=== PATIENT | female | born 1975 | race Caucasian/White ===

== ENCOUNTER → 2016-11-22 | Outpatient (REF) | payer OTHER ==
[~2016-11-22] MED LIST: NORA-BE
[2016-11-22 21:00] LABS: ANION GAP 7 MEQ/L (8-16); BLOOD UREA NITROGEN 8 MG/DL (7-18); CALCIUM LEVEL 8.7 MG/DL (8.5-10.1); CARBON DIOXIDE LEVEL 28 MEQ/L (21-32); CHLORIDE LEVEL 108 MEQ/L (98-107); CREATININE FOR GFR 0.76 MG/DL (0.55-1.02); GLOMERULAR FILTRATION RATE > 60.0 (>60); GLUCOSE, FASTING 67 MG/DL (70-105); POTASSIUM SERUM 3.6 MEQ/L (3.5-5.1); SODIUM LEVEL 143 MEQ/L (136-145)
== END ==
LOC: M SFHCADAM 16:58
PROVIDERS: ATTEND Physician Assistant
DX: I10 Essential (primary) hypertension (principal)

== ENCOUNTER 2018-11-03 09:16 | Emergency (ER) | payer OTHER ==
[~2018-11-03] VITALS: Ht 172.7 cm; Wt 116.8 kg
[2018-11-03] MEDS ORDERED: BENI1TAB3 PO (09:23)
[2018-11-03] MEDS ORDERED: CLAR10CA3 PO (09:23)
--- NOTE | 2018-11-03 10:26 | REP ---
Portable chest, single AP view with the patient upright, 10:07 a.m.: There are no comparisons. The lung whitley are clear. The cardiac size is normal. The machelle, mediastinum, and skeletal structures are unremarkable. Impression: Negative portable chest. Electronically Signed by Kash Pelaez MD 11/03/2018 10:17 A
--- NOTE | 2018-11-03 10:41 | ECGEPIP ---
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
[2018-11-03 10:48] LABS: BASO % 0.3 % (0.0-1.0); EOS # 0.1 10^3/uL (0.0-0.50); HEMATOCRIT 40.7 % (36.0-47.0); LYMPH # 1.4 10^3/uL (1.5-4.5); LYMPH % 18.6 % (24.0-44.0); MEAN CORPUSCULAR HEMOGLOBIN 29.6 pg (27.0-33.0); MEAN CORPUSCULAR HGB CONC 34.4 g/dl (32.0-36.5); MONO # 0.3 10^3/uL (0.0-0.8); MONO % 4.6 % (0.0-5.0); NEUTROPHILS # 5.5 10^3/uL (1.8-7.7); PLATELET COUNT, AUTOMATED 172 10^3/uL (150-450); RED BLOOD COUNT 4.73 10^6/uL (4.00-5.40); WHITE BLOOD COUNT 7.4 10^3/uL (4.0-10.0)
[2018-11-03 11:29] LABS: BLOOD UREA NITROGEN 10 MG/DL (7-18); CARBON DIOXIDE LEVEL 26 MEQ/L (21-32); CHLORIDE LEVEL 110 MEQ/L (98-107); CK-MB VALUE MASS < 1.0 NG/ML (<3.6); CPK CREATINE PHOSPHOKINASE 76 U/L (26-192); CREATININE FOR GFR 0.73 MG/DL (0.55-1.30); GLOMERULAR FILTRATION RATE > 60.0 (>58); GLUCOSE, FASTING 139 MG/DL (70-100); MAGNESIUM LEVEL 2.2 MG/DL (1.8-2.4); MB/CK RELATIVE INDEX 1.32 (< OR =4); PHOSPHORUS LEVEL 1.7 MG/DL (2.5-4.9); POTASSIUM SERUM 3.9 MEQ/L (3.5-5.1); SODIUM LEVEL 139 MEQ/L (136-145); THYROID STIMULATING HORMONE 0.662 uIU/ML (0.358-3.740); TROPONIN I < 0.02 NG/ML (< 0.10)
[2018-11-03] MEDS ORDERED: NEUTRA-PHOS 1.5 GM PACKET PO ONE (12:15)
[2018-11-03 13:00] VITALS: BP 149/92
== END 2018-11-03 13:18 | disposition home or self-care (01) ==
LOC: M ED 09:16
DX: R00.2 Palpitations (principal); I10 Essential (primary) hypertension; Z79.899 Other long term (current) drug therapy; Z79.3 Long term (current) use of hormonal contraceptives

== ENCOUNTER → 2019-08-13 | Outpatient (REF) | payer OTHER ==
[~2019-08-13] MED LIST changes: +BENI1TAB3 PO; +CLAR10CA3 PO
[2019-08-13 13:43] LABS: ALBUMIN 3.2 GM/DL (3.2-5.2); ALT/SGPT 33 U/L (12-78); BILIRUBIN,TOTAL 0.8 MG/DL (0.2-1.0); BLOOD UREA NITROGEN 10 MG/DL (7-18); CARBON DIOXIDE LEVEL 25 MEQ/L (21-32); CHLORIDE LEVEL 108 MEQ/L (98-107); GLOMERULAR FILTRATION RATE > 60.0 (>58); GLUCOSE, FASTING 105 MG/DL (70-100); SODIUM LEVEL 142 MEQ/L (136-145)
[2019-08-13 13:56] LABS: MAU/CREAT RATIO 29.2 MCG/MG (0.0-30.0)
[2019-08-13 14:07] LABS: HEMOGLOBIN A1c 5.6 %
== END ==
LOC: M SFHCADAM 08:01
PROVIDERS: ATTEND Physician Assistant
DX: E83.39 Other disorders of phosphorus metabolism (principal); I10 Essential (primary) hypertension; Z13.1 Encounter for screening for diabetes mellitus; R73.09 Other abnormal glucose

== ENCOUNTER → 2020-08-03 | Outpatient (REF) | payer OTHER ==
[2020-08-03 17:11] LABS: HEMATOCRIT 41.9 % (36.0-47.0); HEMOGLOBIN 13.9 g/dl (12.0-15.5); MEAN CORPUSCULAR HGB CONC 33.2 g/dl (32.0-36.5); MEAN CORPUSCULAR VOLUME 87.5 fl (80.0-96.0); PLATELET COUNT, AUTOMATED 211 10^3/uL (150-450); RED BLOOD COUNT 4.79 10^6/uL (4.00-5.40)
[2020-08-03 17:35] LABS: ALBUMIN 3.5 GM/DL (3.2-5.2); ALT/SGPT 37 U/L (12-78); BLOOD UREA NITROGEN 11 MG/DL (7-18); CALCIUM LEVEL 9.1 MG/DL (8.5-10.1); CARBON DIOXIDE LEVEL 24 MEQ/L (21-32); CHLORIDE LEVEL 108 MEQ/L (98-107); CHOLESTEROL LEVEL 161 MG/DL (<200); CHOLESTEROL RISK RATIO 3.744 (<5); GLOMERULAR FILTRATION RATE > 60.0 (>58); GLUCOSE, FASTING 86 MG/DL (70-100); HDL CHOLESTEROL 43 MG/DL (>40); LDL CHOLESTEROL 76 MG/DL (<100); NON-HDL-C 118 MG/DL; POTASSIUM SERUM 3.9 MEQ/L (3.5-5.1); SODIUM LEVEL 140 MEQ/L (136-145); TOTAL PROTEIN 7.2 GM/DL (6.4-8.2); TRIGLYCERIDES LEVEL 210 MG/DL (<150)
[2020-08-03 17:40] LABS: MALB URINE SIEMENS 78.5 MG/L; MAU/CREAT RATIO 40.2 MCG/MG (0.0-30.0)
[2020-08-03 17:54] LABS: HEMOGLOBIN A1c 5.5 %
== END ==
LOC: M SFHCADAM 12:00
PROVIDERS: ATTEND Physician Assistant
DX: I10 Essential (primary) hypertension (principal); R73.09 Other abnormal glucose; Z13.220 Encounter for screening for lipoid disorders

== ENCOUNTER 2020-09-26 17:29 | Emergency (ER) | payer OTHER ==
[~2020-09-26] VITALS: Ht 172.7 cm; Wt 118.1 kg
[2020-09-26] MEDS ORDERED: MICR1TAB18 (18:09)
[2020-09-26] MEDS ORDERED: FAMO40TA3 (18:09)
[2020-09-27] MEDS ORDERED: METR1GEL7 PV (02:43)
[2020-09-27 03:06] VITALS: BP 180/92
[2020-09-27 03:22] LABS: GC DNA AMPLIFICATION NEGATIVE (NEGATIVE)
== END 2020-09-27 03:07 | disposition home or self-care (01) ==
LOC: M ED 17:29
DX: M54.2 Cervicalgia (principal); N93.9 Abnormal uterine and vaginal bleeding, unspecified; Z79.899 Other long term (current) drug therapy

== ENCOUNTER → 2020-10-06 | Outpatient (CLI) | payer OTHER ==
[~2020-10-06] MED LIST changes: +FAMO40TA3; +METR1GEL7 PV; +MICR1TAB18
--- NOTE | 2020-10-06 10:37 | REP ---
INDICATION: PELVIC PAIN. COMPARISON: 04/06/2019. TECHNIQUE: Transabdominal and transvaginal scanning performed. FINDINGS: Uterine dimensions are 9.7 x 4.7 x 5.8 cm. Endometrial echo is 4 mm in AP dimension and centrally placed. There is an anterior fibroid measuring 1.5 cm in diameter. The bladder measures 15.5 x 9.6 x 11.2cm. The right ovary has dimensions of 3.2 x 1.8 x 2.4 cm. It's Doppler flow is normal with a resistive index of 0.66. There has been a prior left oophorectomy. There is no adnexal mass identified. No free fluid is seen in the cul-de-sac. IMPRESSION: Anterior fibroid 1.5 cm in diameter. No adnexal mass, torsion or free fluid. <Electronically signed by Kash Sequeira > 10/06/20 1033
[2020-10-06 14:00] LABS: GC DNA AMPLIFICATION NEGATIVE (NEGATIVE)
== END ==
LOC: M RAD 09:16
PROVIDERS: ATTEND Physician Assistant
DX: R10.2 Pelvic and perineal pain (principal); D25.9 Leiomyoma of uterus, unspecified

== ENCOUNTER → 2020-11-03 | Outpatient (REF) | payer OTHER | LOC: M SFHCWAGY 13:19 | PROVIDERS: ATTEND Advanced Practice Midwife | DX: Z12.4 Encounter for screening for malignant neoplasm of cervix (principal); R87.610 Atypical squamous cells of undetermined significance on cytologic smear of cervix (ASC-US) | CPT/HCPCS: 87624; G0123 ==

== ENCOUNTER → 2020-11-09 | Outpatient (REF) | payer OTHER ==
[2020-11-09 13:22] LABS: BASO % 0.5 % (0.0-1.0); EOS # 0.1 10^3/uL (0.0-0.5); EOS % 1.4 % (0.0-3.0); HEMATOCRIT 42.1 % (36.0-47.0); HEMOGLOBIN 14.3 g/dl (12.0-15.5); LYMPH # 1.4 10^3/uL (1.5-5.0); LYMPH % 21.4 % (24.0-44.0); MEAN CORPUSCULAR HEMOGLOBIN 29.5 pg (27.0-33.0); MEAN CORPUSCULAR VOLUME 86.8 fl (80.0-96.0); MONO # 0.3 10^3/uL (0.0-0.8); NEUTROPHILS # 4.7 10^3/uL (1.5-8.5); NEUTROPHILS % 71.2 % (36.0-66.0); PLATELET COUNT, AUTOMATED 222 10^3/uL (150-450); RED BLOOD COUNT 4.85 10^6/uL (4.00-5.40); WHITE BLOOD COUNT 6.6 10^3/uL (4.0-10.0)
[2020-11-09 16:11] LABS: ALBUMIN 3.5 GM/DL (3.2-5.2); ALT/SGPT 50 U/L (12-78); AMYLASE 54 U/L (25-115); BLOOD UREA NITROGEN 8 MG/DL (7-18); CALCIUM LEVEL 9.7 MG/DL (8.5-10.1); CARBON DIOXIDE LEVEL 25 MEQ/L (21-32); CHLORIDE LEVEL 109 MEQ/L (98-107); CREATININE FOR GFR 0.82 MG/DL (0.55-1.30); GLOMERULAR FILTRATION RATE > 60.0 (>58); GLUCOSE, FASTING 134 MG/DL (70-100); LIPASE 97 U/L (73-393); POTASSIUM SERUM 3.9 MEQ/L (3.5-5.1); SODIUM LEVEL 140 MEQ/L (136-145); TOTAL PROTEIN 7.3 GM/DL (6.4-8.2)
== END ==
LOC: M SFHCADAM 10:42
PROVIDERS: ATTEND Physician Assistant
DX: I10 Essential (primary) hypertension (principal); R10.13 Epigastric pain

== ENCOUNTER 2020-11-13 13:06 | Emergency (ER) | payer OTHER ==
[~2020-11-13] VITALS: Ht 172.7 cm; Wt 112.3 kg
[2020-11-13 16:02] LABS: HEMATOCRIT 42.6 % (36.0-47.0); HEMOGLOBIN 14.7 g/dl (12.0-15.5); MEAN CORPUSCULAR HEMOGLOBIN 29.7 pg (27.0-33.0); MEAN CORPUSCULAR HGB CONC 34.5 g/dl (32.0-36.5); MEAN CORPUSCULAR VOLUME 86.1 fl (80.0-96.0); PLATELET COUNT, AUTOMATED 231 10^3/uL (150-450); RED BLOOD COUNT 4.95 10^6/uL (4.00-5.40); WHITE BLOOD COUNT 7.7 10^3/uL (4.0-10.0)
--- NOTE | 2020-11-13 16:04 | REP ---
INDICATION: Epigastric tenderness and chest pressure. COMPARISON: None. TECHNIQUE: CT chest performed without the use of intravenous contrast. Sagittal and coronal reconstruction images are performed. FINDINGS: Lungs: Clear, no infiltrate or nodule. Mediastinum: No gross adenopathy. Yanet: No gross adenopathy. Axilla: No gross adenopathy. Pleura: No effusion. Heart: Not enlarged. Thoracic aorta: No aneurysm. Visualized osseous structures: Unremarkable. IMPRESSION: Unremarkable noncontrast CT chest. <Electronically signed by Kash Sequeira > 11/13/20 1600
--- NOTE | 2020-11-13 16:10 | REP ---
INDICATION: Epigastric tenderness and chest pressure COMPARISON: 08/30/2011. TECHNIQUE: CT Scan of the abdomen and pelvis was performed without intravenous contrast. Sagittal and coronal reconstruction images performed. FINDINGS: Lung bases: Unremarkable. Liver: Grossly unremarkable. Gallbladder: Prior cholecystectomy. Spleen: Grossly unremarkable. Adrenals: Normal. Pancreas: Grossly unremarkable.. Kidneys: No hydronephrosis or nephrolithiasis. Ureters demonstrate no dilatation or calculus. Small and large bowel: Grossly unremarkable. Free fluid: None. Abdominal aorta: No aneurysm. Adenopathy: None. Appendix: Not inflamed. Osseous structures: There is spondylolysis of L5 with mild anterior grade 1 spondylolisthesis of L5 on S1, with associated moderate degenerative disc changes at that level.. Pelvis: No mass. No bladder calculus seen. IMPRESSION: Status post cholecystectomy. No acute pathology identified in the abdomen or pelvis. Spondylolysis L5 with mild anterior grade 1 spondylolisthesis of L5 on S1 and associated moderate degenerative disc changes. Otherwise, negative non-contrast CT abdomen and pelvis. <Electronically signed by Kash Sequeira > 11/13/20 4165
[2020-11-13 16:36] LABS: BLOOD UREA NITROGEN 8 MG/DL (7-18); CALCIUM LEVEL 9.1 MG/DL (8.5-10.1); CARBON DIOXIDE LEVEL 25 MEQ/L (21-32); CHLORIDE LEVEL 109 MEQ/L (98-107); CK-MB VALUE MASS < 1.0 NG/ML (<3.6); CPK CREATINE PHOSPHOKINASE 45 U/L (26-192); CREATININE FOR GFR 0.77 MG/DL (0.55-1.30); GLOMERULAR FILTRATION RATE > 60.0 (>58); GLUCOSE, FASTING 101 MG/DL (70-100); MB/CK RELATIVE INDEX 2.22 (< OR =4); POTASSIUM SERUM 3.9 MEQ/L (3.5-5.1); SODIUM LEVEL 140 MEQ/L (136-145); TROPONIN I < 0.02 NG/ML (< 0.10)
[2020-11-13 17:16] VITALS: BP 194/91
[2020-11-13 17:21] LABS: ALBUMIN 3.5 GM/DL (3.2-5.2); ALT/SGPT 45 U/L (12-78); BILIRUBIN,DIRECT 0.2 MG/DL (0.0-0.2); BILIRUBIN,TOTAL 0.9 MG/DL (0.2-1.0); LIPASE 109 U/L (73-393); TOTAL PROTEIN 7.4 GM/DL (6.4-8.2)
[2020-11-13] MEDS ORDERED: AMLO25TA PO (19:18)
[2020-11-13 19:40] VITALS: BP 160/88
--- NOTE | 2020-11-14 15:46 | ECGEPIP ---
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
== END 2020-11-13 19:41 | disposition home or self-care (01) ==
LOC: M ED 13:06 → EDBD 13:06 → M ED 19:41
DX: K43.9 Ventral hernia without obstruction or gangrene (principal); I10 Essential (primary) hypertension; K27.9 Peptic ulcer, site unspecified, unspecified as acute or chronic, without hemorrhage or perforation; M51.37 Other intervertebral disc degeneration, lumbosacral region; M43.17 Spondylolisthesis, lumbosacral region; Z79.3 Long term (current) use of hormonal contraceptives; Z79.899 Other long term (current) drug therapy

== ENCOUNTER → 2020-11-14 | Outpatient (REF) | payer OTHER ==
[~2020-11-14] MED LIST changes: +AMLO25TA PO
== END ==
LOC: M SFHCADAM 11:22
PROVIDERS: ATTEND Physician Assistant
DX: R10.13 Epigastric pain (principal)

== ENCOUNTER 2020-11-27 14:52 | Emergency (ER) | payer OTHER ==
[2020-11-27 15:53] LABS: BASO % 0.6 % (0.0-1.0); EOS # 0.1 10^3/uL (0.0-0.5); HEMATOCRIT 42.3 % (36.0-47.0); HEMOGLOBIN 14.7 g/dl (12.0-15.5); LYMPH # 1.4 10^3/uL (1.5-5.0); LYMPH % 18.9 % (24.0-44.0); MEAN CORPUSCULAR HEMOGLOBIN 29.9 pg (27.0-33.0); MEAN CORPUSCULAR HGB CONC 34.8 g/dl (32.0-36.5); MONO # 0.4 10^3/uL (0.0-0.8); MONO % 5.9 % (2.0-8.0); NEUTROPHILS # 5.2 10^3/uL (1.5-8.5); NEUTROPHILS % 73.3 % (36.0-66.0); PLATELET COUNT, AUTOMATED 219 10^3/uL (150-450); RED BLOOD COUNT 4.92 10^6/uL (4.00-5.40); WHITE BLOOD COUNT 7.1 10^3/uL (4.0-10.0)
[2020-11-27] MEDS ORDERED: LARI1TAB9 PO (15:55)
[2020-11-27] MEDS ORDERED: OLME20TA2 PO (15:55)
[2020-11-27] MEDS ORDERED: BUSP15TA47 PO (15:55)
[2020-11-27] MEDS ORDERED: OMEP-221 PO (15:55)
[2020-11-27 15:57] LABS: APPEARANCE, URINE CLEAR (CLEAR); BACTERIA, URINE AUTO NEGATIVE (NEGATIVE); BILIRUBIN, URINE AUTO NEGATIVE (NEGATIVE); BLOOD, URINE BLOOD 2+ (NEGATIVE); COLOR, URINE YELLOW (YELLOW); GLUCOSE, URINE (UA) AUTO NEGATIVE (NEGATIVE); KETONE, URINE AUTO NEGATIVE (NEGATIVE); LEUKOCYTE ESTERASE, URINE AUTO NEGATIVE (NEGATIVE); MUCUS, URINE SMALL (NEGATIVE); NITRITE, URINE AUTO NEGATIVE (NEGATIVE); PROTEIN, URINE AUTO NEGATIVE (NEGATIVE); RBC, URINE AUTO 1 /HPF (0-3); SPECIFIC GRAVITY URINE AUTO 1.006 (1.002-1.035); SQUAMOUS EPITHELIAL CELL UR AU 0 /HPF (0-6); UROBILINOGEN, URINE AUTO 0.2 mg/dL (0.0-2.0); WBC, URINE AUTO 2 /HPF (0-3)
--- NOTE | 2020-11-27 15:58 | REP ---
INDICATION: CHEST PAIN COMPARISON: Radiograph 11/03/2018, CT 11/13/2020. TECHNIQUE: PA/Lateral FINDINGS: Lungs: Clear, no infiltrate. Heart: Normal in size. Mediastinum: Mediastinal silhouette unremarkable. Pleural angles: Unremarkable.. Bones and soft tissues: Unremarkable. IMPRESSION: No acute pulmonary disease. <Electronically signed by Kash Sequeira > 11/27/20 0240
[2020-11-27 16:27] LABS: RSV AMPLIFICATION NEGATIVE (NEGATIVE)
[2020-11-27 16:46] LABS: ALBUMIN 3.7 GM/DL (3.2-5.2); ALT/SGPT 68 U/L (12-78); BILIRUBIN,DIRECT 0.2 MG/DL (0.0-0.2); BLOOD UREA NITROGEN 8 MG/DL (7-18); CALCIUM LEVEL 9.7 MG/DL (8.5-10.1); CARBON DIOXIDE LEVEL 27 MEQ/L (21-32); CHLORIDE LEVEL 109 MEQ/L (98-107); CK-MB VALUE MASS < 1.0 NG/ML (<3.6); CPK CREATINE PHOSPHOKINASE 63 U/L (26-192); CREATININE FOR GFR 0.81 MG/DL (0.55-1.30); FREE T4 1.29 NG/DL (0.76-1.46); GLOMERULAR FILTRATION RATE > 60.0 (>58); GLUCOSE, FASTING 116 MG/DL (70-100); MB/CK RELATIVE INDEX 1.59 (< OR =4); POTASSIUM SERUM 3.5 MEQ/L (3.5-5.1); SODIUM LEVEL 141 MEQ/L (136-145); THYROID STIMULATING HORMONE 0.235 uIU/ML (0.358-3.740); TOTAL PROTEIN 7.7 GM/DL (6.4-8.2); TROPONIN I < 0.02 NG/ML (< 0.10)
[2020-11-27] MEDS ORDERED: ISOVUE-370 76% 100ML VIAL As Ordered ONE (16:56)
[2020-11-27] MEDS ORDERED: ACETAMINOPHEN TAB 650MG DOSE (2X325MG) PO ONE (17:20)
[2020-11-27 17:28] LABS: HEPATITIS B SURFACE ANTIGEN NEGATIVE (NEGATIVE); HEPATITIS C VIRUS ABY INDEX < 0.0 INDEX (<0.8)
[2020-11-27 17:48] LABS: HIV SCREEN CENTAUR SOURCE NEGATIVE (NEGATIVE)
--- NOTE | 2020-11-27 17:58 | REPVR ---
PROCEDURE INFORMATION: Exam: CTA Chest With Contrast Exam date and time: 11/27/2020 5:02 PM Age: 45 years old Clinical indication: Other: Abdominal pain, 20 pound weight loss TECHNIQUE: Imaging protocol: Computed tomographic angiography of the chest with contrast. 3D rendering (Not supervised by radiologist): MIP and/or 3D reconstructed images were created by the technologist. Radiation optimization: All CT scans at this facility use at least one of these dose optimization techniques: automated exposure control; mA and/or kV adjustment per patient size (includes targeted exams where dose is matched to clinical indication); or iterative reconstruction. Contrast material: ISOVUE 370; Contrast volume: 100 ml; Contrast route: INTRAVENOUS (IV); COMPARISON: CT Chest without contrast 11/13/2020 3:26 PM FINDINGS: Pulmonary arteries: There are no pulmonary emboli. Aorta: There is fusiform dilatation of the supravalvular ascending thoracic aorta which measures 3.8 cm. maximally. There is no dissection or saccular component. Thyroid: Multiple small hypoattenuating thyroid nodules measure up to 9 mm in the left lobe. Correlation with nonemergent thyroid ultrasound suggested. Lungs: Mild bibasilar atelectasis. Pleural spaces: Unremarkable. No pneumothorax. No pleural effusion. Heart: Unremarkable. No cardiomegaly. No pericardial effusion. Lymph nodes: Unremarkable. No enlarged lymph nodes. Liver: There is a diffuse decrease in hepatic parenchymal density, consistent with steatosis. Gallbladder and bile ducts: Cholecystectomy. Spleen: There is mild splenomegaly. Bones/joints: The spine demonstrates mild degenerative changes. Soft tissues: Unremarkable. IMPRESSION: 1. Multiple small hypoattenuating thyroid nodules measure up to 9 mm in the left lobe. Correlation with nonemergent thyroid ultrasound could be considered although in the absence of suspicious findings no follow-up is required using ACR guidelines. 2. There is fusiform dilatation of the supravalvular ascending thoracic aorta which measures 3.8 cm. maximally. There is no dissection or saccular component. 3. There are no pulmonary emboli. 4. There are no acute pulmonary parenchymal abnormalities. COMMENTS: Consistent with the [employer]'s Incidental Findings Committee white paper (J Am Joel Radiol 2015): In patients aged 35 years and older with an incidental thyroid nodule equal to or greater than 1.[address], MRI or extrathyroidal US, further evaluation with dedicated thyroid US is recommended for patients with normal life expectancy and without comorbidities. For smaller nodules without suspicious features, no further evaluation or follow up is recommended. Electronically signed by: Sander Sharp On 11/27/2020 17:57:57 PM
--- NOTE | 2020-11-27 18:12 | REPVR ---
PROCEDURE INFORMATION: Exam: CT Abdomen And Pelvis With Contrast Exam date and time: 11/27/2020 5:02 PM Age: 45 years old Clinical indication: Other: Abdominal pain, 20 pound weight loss TECHNIQUE: Imaging protocol: Computed tomography of the abdomen and pelvis with contrast. Radiation optimization: All CT scans at this facility use at least one of these dose optimization techniques: automated exposure control; mA and/or kV adjustment per patient size (includes targeted exams where dose is matched to clinical indication); or iterative reconstruction. Contrast material: ISOVUE 370; Contrast volume: 100 ml; Contrast route: INTRAVENOUS (IV); COMPARISON: CT ABD PELVIS W/O CONTRAST 11/13/2020 3:26 PM FINDINGS: Liver: Normal. No mass. Gallbladder and bile ducts: There has been a cholecystectomy. Pancreas: Normal. No ductal dilation. Spleen: There is mild splenomegaly with a maximum span of 13.6 centimeters. No focal abnormalities demonstrated. Adrenal glands: Normal. No mass. Kidneys and ureters: Normal. No hydronephrosis. Stomach and bowel: Unremarkable. No obstruction. No mucosal thickening. Appendix: No evidence of appendicitis. Intraperitoneal space: Unremarkable. No free air. No significant fluid collection. Vasculature: The aortoiliac vessels demonstrate mild atherosclerotic calcification. Lymph nodes: Unremarkable. No enlarged lymph nodes. Urinary bladder: Unremarkable as visualized. Reproductive: Unremarkable as visualized. Bones/joints: There is a grade 1 anterior spondylolisthesis of L5 on S1 secondary to bilateral L5 spondylolysis. Mild central spinal stenosis L3-L4 and severe central spinal stenosis L4-L5. Soft tissues: There is a small umbilical hernia. There is no evidence of incarceration. Spigelian hernia right lower quadrant without evidence of incarceration. Diastasis of the rectus sheath. IMPRESSION: 1. There is a grade 1 anterior spondylolisthesis of L5 on S1 secondary to bilateral L5 spondylolysis. 2. There has been a cholecystectomy. 3. There is mild splenomegaly with a maximum span of 13.6 centimeters. No focal abnormalities demonstrated. 4. Spigelian hernia right lower quadrant without evidence of incarceration. 5. No acute findings. Electronically signed by: Sander Sharp On 11/27/2020 18:12:01 PM
[2020-11-27] MEDS ORDERED: VALSARTAN 80 MG TAB (DIOVAN) PO ONE (18:15)
[2020-11-27] MEDS ORDERED: AMLO1TAB25 PO (18:44)
[2020-11-27] MEDS ORDERED: VALS1TAB68 PO (18:45)
[2020-11-27 19:14] VITALS: BP 159/80
[2020-11-27 19:27] VITALS: BP 165/88
--- NOTE | 2020-11-27 19:50 | ECGEPIP ---
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
--- NOTE | 2020-11-29 13:07 | ED PDOC ---
Post-Departure Follow-Up ranjana avelar faxed formal reports of ct chest and abd/p for fu Bridger Navarrete MD Nov 29, 2020 13:07
== END 2020-11-27 19:47 | disposition home or self-care (01) ==
LOC: M ED 14:52
DX: I10 Essential (primary) hypertension (principal); R63.4 Abnormal weight loss; E04.1 Nontoxic single thyroid nodule; M43.17 Spondylolisthesis, lumbosacral region; M48.061 Spinal stenosis, lumbar region without neurogenic claudication; R16.1 Splenomegaly, not elsewhere classified; K43.9 Ventral hernia without obstruction or gangrene; Z79.899 Other long term (current) drug therapy
CPT/HCPCS: 36415; 71046; 71275; 74177; 80047; 80048; 80076; 81001; 82550; 82553; 84439; 84443; 84484; 84702; 85025; 86803; 87340; 87389; 87631; 93005; 93041; 94760; 99285; Q9967

== ENCOUNTER → 2020-12-01 | Outpatient (REF) | payer OTHER ==
[~2020-12-01] MED LIST changes: +AMLO1TAB25 PO; +BUSP15TA47 PO; +LARI1TAB9 PO; +OLME20TA2 PO; +OMEP-221 PO; +VALS1TAB68 PO
[2020-12-01 14:20] LABS: FREE T3 2.9 PG/ML (2.2-4.0); FREE T4 1.2 NG/DL (0.76-1.46); THYROID STIMULATING HORMONE 0.466 uIU/ML (0.358-3.740)
[2020-12-01 14:21] LABS: TOTAL T3 162.8 NG/DL (60.0-181.0)
== END ==
LOC: M SFHCADAM 10:17
PROVIDERS: ATTEND Physician Assistant
DX: R79.89 Other specified abnormal findings of blood chemistry (principal); E04.1 Nontoxic single thyroid nodule

== ENCOUNTER → 2020-12-11 | Outpatient (CLI) | payer OTHER ==
--- NOTE | 2020-12-13 09:33 | REP ---
INDICATION: NODULE COMPARISON: None. TECHNIQUE: Sequeira scale and color evaluation of the thyroid gland using the linear high frequency transducer. FINDINGS: Right thyroid lobe measures 6.7 x 2.0 x 2.3 cm and includes multiple small nodules/cysts including 6 x 3 x 5 mm cyst and 4 x 3 x 3 mm hypoechoic nodule as well as 1.6 x 1.0 x 1.7 cm lower pole isoechoic nodule. Isthmus measures 6.4 mm in width. Left thyroid lobe measures 6.4 x 2.4 x 2.1 cm and includes 4 x 3 x 3 mm midpole cyst, few small vague nodules measuring up to 5 x 3 x 4 mm, and complex lower pole nodule with cystic component and coarse calcifications measuring 1.7 x 1.7 x 1.6 cm. IMPRESSION: Scattered cysts and nodules most likely represent a benign process. However, left lower pole complex lesion conforms to TI-RADS 4 and may warrant FNA. <Electronically signed by Ruben Weeks > 12/13/20 0983
== END ==
LOC: M RAD 13:56
PROVIDERS: ATTEND Physician Assistant
DX: E04.2 Nontoxic multinodular goiter (principal)

== ENCOUNTER → 2020-12-19 | Outpatient (REF) | payer OTHER | LOC: M SFHCADAM 08:01 | PROVIDERS: ATTEND Physician Assistant | DX: I10 Essential (primary) hypertension (principal) ==

== ENCOUNTER → 2021-01-10 | Outpatient (REF) | payer OTHER ==
[~2021-01-10] MED LIST changes: +CHLO125TA PO; +CITA10TA5 PO; +DEBL1TAB PO; +FAMO20TA PO; +FAMO40TA3 PO; +OMEP-218 PO; +SUCR1TAB56 PO
== END ==
LOC: M LAB REF 18:27
PROVIDERS: ATTEND Internal Medicine Endocrinology, Diabetes & Metabolism
DX: E04.2 Nontoxic multinodular goiter (principal)

== ENCOUNTER → 2021-01-10 | Outpatient (CLI) | payer OTHER | LOC: M LABSMTC 11:32 | PROVIDERS: ATTEND Anesthesiology | DX: Z01.812 Encounter for preprocedural laboratory examination (principal); Z20.822 Contact with and (suspected) exposure to COVID-19 ==

== ENCOUNTER 2021-01-15 11:32 | Day surgery (SDC) | payer OTHER ==
[~2021-01-15] VITALS: Ht 170.2 cm; Wt 99.8 kg
[~2021-01-15 11:32] MED LIST changes: +NS 1,000 ML IV ONE
--- OUTSIDE RECORDS SUMMARY | 2021-01-15 11:37 | CCD | Continuity of Care Document ---
Author Author Jennifer NUNEZ MD Organization Unknown Address [address] [place] [address] Phone [phone] Care Team Providers Care [employer] Communications Sergeant Name Role Phone Ajayhemal Laura Elder AUTM Problems Active Problems Provider Date Essential hypertension Onset: 01/05/2021 Social History Type Date Description Comments Sex Unknown Tobacco Use Start: Unknown Never Smoked Cigarettes Smoking Status Reviewed: 01/10/21 Never Smoked Cigarettes ETOH Use Never used alcohol Allergies and adverse reactions Description No Known Drug Allergies Medications Active Medications SIG Qnty Indications Ordering Provide r Date Omeprazole 20mg Capsules DR 1 by mouth twice daily Unknown Famotidine 20mg Tablets 1 by mouth twice daily Unknown Valsartan 320mg Tablets 1 by mouth daily Unknown Deblitane 0.35mg Tablets 1 by mouth daily Unknown Chlorthalidone 25mg Tablets 1 by mouth daily Unknown Multivitamin Adult Chewtabs 2 by mouth daily Unknown Bio Cleanse 4 by mouth daily Unknown 000 Priobio 5 1 by mouth twice daily Unknown Mo Zme Forte 6 by mouth daily Unknown 7 Keto Zyme 4 by mouth daily Unknown 0 000 Vitamin B Complex Tablets 2 by mouth daily Unknown Blackcurrent Seed Oil 2 by mouth daily Unknown Claritin 10mg Capsules 1 by mouth every night at bedtime Unknown Vitamin D 50mcg (2000 Ut) Capsules 1 by mouth every day Unknown Immunizations Description No Information Available Vital Signs Date Vital Result Comment 01/10/2021 2:38pm BP Systolic 128 mmHg BP Diastolic 82 mmHg Heart Rate 96 /min Weight 224.38 lb O2 % BldC Oximetry 98 % 01/09/2021 10:03am BP Systolic 124 mmHg BP Diastolic 80 mmHg Heart Rate 84 /min Height 67.0 inches 5'7" Weight 225.00 lb BMI (Body Mass Index) 35.2 kg/m2 O2 % BldC Oximetry 98 % Results Test Acquired Date Facility Test Result H/L Range Note Laboratory test finding 01/10/2021 [facility] [address] [place] [address] (315)- - Non Machine Filler/Cytology Req For Servi (SEE NOTE) 1 Laboratory test finding 01/10/2021 [facility] [address] [place] [address] (315)- - Non Machine Filler/Cytology Req For Servi (SEE NOTE) 2 1 SPECIMEN: FNA Lef t thyroid Specimen received in Cytolyt (pink) SPECIMEN ADEQUACY: Satisfactory for evaluation CATEGORIZATION: Benign cellular changes: DESCRIPTIONS: Scattered groups of follicular cells exhibiting hurthle cell changes in a background of rare scattered neitrophils, lymphocytes, and macrophages. COMMENTS: 01/11/2021944 Signed COLE KIDD(ASCP) 01/11/202145 (Prelim) Signed ABDON MAE MD 01/11/2021 1013 2 SPECIMEN: FNA Rig ht thyroid Specimen received in Cytolyt SPECIMEN ADEQUACY: Satisfactory for evaluation CATEGORIZATION: Benign DESCRIPTIONS: Scattered small groups of follicular cells noted in a background of few scattered lymphocytes and blood elements. COMMENTS: 01/11/2021948 Signed COLE KIDD(ASCP) 01/11/2021 0949 (Prelim) Signed ABDON MAE MD 01/11/2021 1013 Procedures Date Code Description Status 01/10/2021 14479 Fine Needle Aspiration Biopsy In lcd Ultrasound Guidance Completed 01/09/2021 16468 Office/Outpatient New High MDM 6 0-74 Minutes Completed Medical Devices Description No Information Available Encounters Description No Information Available Assessments Date Code Description Provider 01/10/2021 E04.2 Nontoxic multinodular goiter Ventura Nunez MD 01/09/2021 E04.2 Nontoxic multinodular goiter Marcell Green NP Plan of Treatment Future Appointment(s):* 01/19/2021 4:15 pm - Jemima Green NP at DR. Nitza Nunez 01/09/2021 - Jemima Green NP* E04.2 Nontoxic multinodular goiter* Comments:* Pt referred for evaluation of MNG- pt's mother in [facility] has been to ER at [facility] multiple times due to Hypertension and chest pain. Had CT Chest which noted thyroid nodules. NO FH, small goiter on exam. 12/01/2020- TSH: 0.466 Free T4: 1.20 TT3: 162.8, FT3= 2.9U/S personally reviewed on website- [employer]- homogeneous echotexture. No blood flow identified. right superior nodule- 0.466 x 0.5 x 0.2 cm. midpole- 0.323 x 0.4 x 0.3 cm, inferior- 1.70 x 1.57 x 1.03 cm. Left mid- 0.4 x 0.2, second- 0.4 x 0.3 cm. lower pole- 1.56 x 1.7 x 1.6 cm. Ultrasound reveals a dominant nodule on the left and right - which warrants biopsy. The patient has agreed to return for in office U/S guided biopsy to rule out carcinoma. Procedure explained- pt is very upset and anxiousReviewed all possible situationsPt verbalized understandingRTO tomorrow for FNA. . * Follow up:* CBF Biopsy at f/u Functional Status Description No Information Available Mental Status Description No Information Available Referrals Description No Information Available
--- OUTSIDE RECORDS SUMMARY | 2021-01-15 11:37 | CCD ---
Author Author [facility] Organization [facility] Address Unknown Phone Unavailable Care Team Providers Care Promotions Executive Producer Name Role Phone Laura Pablo Unavailable PROBLEMS Type Condition ICD9-CM Code QYZ22-GS Code Onset Dates Condition S tatus W/U Status Risk SNOMED Code Notes Problem HTN (hypertension) I10 Active confirmed 3 6121258 Problem Hypophosphatemia E83.39 Active confirmed 499 6001 Problem Gastroesophageal reflux disease without esophagitis K21.9 Active confirmed 533978988 Problem Thyroid nodule E04.1 Active confirmed 40214 5005 Problem Primary hypertension I10 Active confirmed 11655884 Problem Hypertriglyceridemia E78.1 Active confirmed 929753395 Problem Anxiety F41.9 Active confirmed 37888656 Problem Primary insomnia F51.01 Active confirmed 397 2004 Problem PUD (peptic ulcer disease) K27.9 Active confirmed 51707143 ALLERGIES No Known Allergies ENCOUNTERS from 1975 to 2020-12-01 Encounter Location Date Provider Diagnosis [address] [place] [address] Nov, 2020 Laura Pablo Low TSH level R79.89 and Thyroid nodule E04.1 IMMUNIZATIONS Vaccine Route Administration Date Status COVID-19 dose #2 given elsewhere Unspecified Unknown May 09, 2020 Administered COVID-19 dose #1 given elsewhere Unspecified Unknown Aug Administered SOCIAL HISTORY Tobacco Use: Social History Observation Description Date Details (start date - stop date) Never Smoker Sex Assigned At : Social History Observation Description Sex Assigned At Unknown Audit Question Answer Notes Total Score: 0 Interpretation: Alcohol Education Language: Question Answer Notes Languages spoken: Wolof Domestic Violence: Question Answer Notes Status: Drug and Alcohol Question Answer Notes Total Score: 0 Interpretation: No problems reported BMI Care Goal Follow-Up Question Answer Notes Above Normal BMI Follow-Up Dietary management educatio n, guidance, and counseling Tobacco Use: Question Answer Notes Are you a: never smoker never smoker REASON FOR REFERRAL No Information VITAL SIGNS No information MEDICATIONS Medication SIG (Take, Route, Frequency, Duration) Notes Start Da te End Date Status Benicar 20 mg 1 tab(s) Orally Once a day for 90 day(s) Dec, Active Microgestin 24 Fe 1-20 MG-MCG 1 tablet Orally Once a day for 84 days Oct, Active amLODIPine Besylate 2.5 MG 1 tablet Orally Once a day Active Multivitamin Adult - as directed Orally Active Vitamin D 1000 UNIT 2 tablet Orally Once a day Active Valsartan 320 MG 1 tablet Orally Once a day at bedtime Active Microgestin 1/20 1-20 MG-MCG 1 tablet Orally Daily for Three Weeks, 1 Week off Unknown busPIRone HCl 15 MG 1 tablet orally twice a day for 30 days Active Probiotic - as directed Orally Activ e Omeprazole 20 MG 1 cap Orally twice a day for 90 day(s) Oct, Active Ambien 5 MG 1 tablet at bedtime Orally O nce a day at bedtime as needed MDD = 1 for 30 days Oct, Unknown Loratadine 10 MG 1 tablet Orally Once a day Active Famotidine 40 MG 1/2 tablet Orally twice a day July, Active PROCEDURES No Information RESULTS No Results REASON FOR VISIT ER MEDICAL (GENERAL) HISTORY Type Description Date Medical History HTN Medical History Palpitations - Full Workup with Cardiolo gy - Anxiety Related Medical History GERD Medical History Seasonal Allergies Medical History H/O Gallstone pancreatitis 2009 Surgical History C section x 2 09/17/2006,01/23/2009 Surgical History gall bladder 06/02/2009 Surgical History ovarian cyst 09/03/2011 Surgical History wisdom teeth extract 1994 Hospitalization History childbirth Hospitalization History surgery Goals Section No Information Health Concerns No Information MEDICAL EQUIPMENT No Information MENTAL STATUS No Information FUNCTIONAL STATUS No Information ASSESSMENTS Encounter Date Diagnosis Assessment Notes Treatment Notes Treatm ent Clinical Notes Nov, Low TSH level (ICD-10 - R79.89) Nov, Thyroid nodule (ICD-10 - E04.1) PLAN OF TREATMENT Medication Medication Name Sig Start Date Stop Date Valsartan 320 MG 1 tablet Orally Once a day at bedtime amLODIPine Besylate 2.5 MG 1 tablet Orally Once a day Treatment Notes Test Name Order Date FREE T3 2020-12-01 TOTAL T3 2020-12-01 FREE T4 & TSH PANEL 2020-12-01 Next Appt Details Provider Name:Laura Pablo, 2020-11 01:30:00 PM, [id number], , [place], [address], Provider Name:Masood Brown, 2020-12-18 03:30:00 PM, [address] [facility], , [place], [address], Insurance Providers Payer Name Payer Address Payer Phone Insured Name Patient Relati onship to Insured Coverage Start Date Coverage End Date [facility] [address] [place] [id number] EDUARD CARLISLE self
--- OUTSIDE RECORDS SUMMARY | 2021-01-15 11:37 | CCD | Continuity of Care Document ---
Author Author Jennifer NUNEZ MD Organization Unknown Address [address] [place] [address] Phone [phone] Care Team Providers Care Creel Operator Name Role Phone Ajayhemal Laura Elder AUTM [...] H/L Range Note Laboratory test finding 01/10/2021 [facility] [address] [place] [address] (315)- - Non High Lead Yarder/Cytology Req For Servi (SEE NOTE) 1 Laboratory test finding 01/10/2021 [facility] [address] [place] [address] (315)- - Non High Lead Yarder/Cytology Req For Servi (SEE NOTE) 2 1 [...] 1013 Procedures Date Code Description Status 01/10/2021 40163 Fine Needle Aspiration Biopsy In lcd Ultrasound Guidance Completed 01/09/2021 45273 Office/Outpatient New High MDM 6 0-74 Minutes [...] for evaluation of MNG- pt's mother in [facility] has been to ER at [facility] multiple times due to Hypertension and chest pain. Had CT Chest which noted thyroid nodules. NO FH, small goiter on exam. 12/01/2020- TSH: 0.466 Free T4: 1.20 TT3: 162.8, FT3= 2.9U/S personally reviewed on website- [employer]- homogeneous echotexture. No blood flow identified. right [...]
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
--- OUTSIDE RECORDS SUMMARY | 2021-01-15 11:37 | CCD | Continuity of Care Document ---
Author Author [facility] Organization Unknown Address [address] [place] [address] Phone [phone] Care Team Providers Care Armament Repairer Name Role Phone Ajayhemal Laura Elder AUTM Problems Active Problems Provider Date Essential hypertension Onset: 01/05/2021 Social History Type Date Description Comments Sex Unknown Tobacco Use Start: Unknown Never Smoked Cigarettes Smoking Status Reviewed: 01/09/21 Never Smoked Cigarettes ETOH Use Never used [...] Keto Zyme 4 by mouth daily Unknown 000 Vitamin B Complex Tablets 2 by mouth daily Unknown Blackcurrent Seed Oil 2 by mouth daily Unknown Claritin 10mg Capsules 1 by mouth every night at bedtime Unknown Vitamin D 50mcg (2000 Ut) Capsules 1 by mouth every day Unknown Immunizations Description No Information Available Vital Signs Date Vital Result Comment 01/09/2021 10:03am BP Systolic 124 mmHg BP Diastolic 80 mmHg Heart Rate 84 /min Height 67.0 inches 5'7" Weight 225.00 lb BMI (Body Mass Index) 35.2 kg/m2 O2 % BldC Oximetry 98 % Results Description No Information Available Procedures Date Code Description Status 01/09/2021 47148 Office/Outpatient New High MDM 6 0-74 Minutes Completed Medical Devices Description No Information Available Encounters Type Date Location Provider Dx Diagnosis Office Visit 01/09/2021 10:00a DR. Nitza Dent, [place] P E04.2 Nontoxic multinodular goiter Assessments Date Code Description Provider 01/09/2021 E04.2 Nontoxic multinodular goiter Marcell Dent NP Plan of Treatment Future Appointment(s):* 01/10/2021 2:15 pm - Nitza Victor MD at DR. Nitza Victor 01/09/2021 - Jemima Dent NP* E04.2 Nontoxic multinodular goiter* Comments:* 12/01/2020- TSH: 0.466 Free T4: 1.20 TT3: 162.8, FT3= 2.9U/S personally reviewed on website- [email or web address]- homogeneous echotexture. No blood flow identified. right [...] U/S guided biopsy to rule out carcinoma. * Follow up:* CBF Biopsy at f/u Functional Status Description No Information Available Mental Status Description No Information Available Referrals Description No Information Available
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
--- OUTSIDE RECORDS SUMMARY | 2021-01-15 11:37 | CCD | Continuity of Care Document ---
Author Author Jennifer MCALLISTER Organization Unknown Address [address] [place] [address], [address] [place] [address] Phone [phone] Care Team Providers Care Role Player Name Role Phone Laura Pablo P.A.-C. AUTM Problems Active Problems Provider Date Essential hypertension Shayy Oleary HERMINIA Mcallister Onset: Social History Type Date Description Comments Sex Unknown ETOH Use Denies alcohol use Tobacco Use Start: Unknown Non Smoker Allergies and adverse reactions Description No Known Drug Allergies Medications Active Medications SIG Qnty Indications Ordering Provide r Date Famotidine 20mg Tablets take 1 tab by mouth daily Unknown Omeprazole 20mg Capsules DR 1 by mouth every day Unknown Buspirone HCL 15mg Tablets take 1 tablet by mouth twice a day Unknown Valsartan 320mg Tablets 1 by mouth every day Unknown Microgestin 24 Fe 1-20mg-mcg Tablets Unknown Multivitamin Tablets 1 by mouth every day Unknown Vitamin D 1000Unit Tablets da cam[place] Unknown Loratadine 10mg Capsules 1 by mouth every day Unknown Probiotic Daily Capsules Plexus Pro Bio 5-daily Unknown Plexus Bio-Cleanse Unknown Citalopram Hydrobromide 10mg Table ts 1 by mouth every day Unknown Amlodipine Besylate 5mg Tablets 1 by mouth every day Unknown Immunizations Description No Information Available Vital Signs Date Vital Result Comment 12/22/2020 1:05pm BP Systolic 162 mmHg BP Diastolic 84 mmHg Height 67.5 inches 5'7.50" Weight 225.00 lb BMI (Body Mass Index) 34.7 kg/m2 [place] Body Weight 135 lb Weight 102.060 kg BSA (Body Surface Area) 2.14 m2 Results Description No Information Available Procedures Description No Information Available Medical Devices Description No Information Available Encounters Description No Information Available Assessments Date Code Description Provider 12/22/2020 R13.10 Dysphagia, unspecified HERMINIA Johnson Plan of Treatment 12/22/2020 - HERMINIA Johnson* R13.10 Dysphagia, unspecified * * New Orders:* Endoscopy with possible dilation, Ordered: 12/22/20 * Comments:* Will arrange for upper endoscopy and possible dilation. Reviewed risks and benefits of the procedure, as well as other options, with the patient. Prep for this procedure was discussed with patient. Patient verbalized understanding of all of the above and is in agreement to proceed. Patient will seek medical attention for any acute changes. Will monitor. * Follow up:* As scheduled, sooner if needed. Functional Status Description No Information Available Mental Status Description No Information Available Referrals Refer to Reason for Referral Status Appt Date Dallin Godfrey M.D. Epigastric pain, nausea, dark stool, EGD Sc heduled 12/22/2020 [facility], Gastroenterology [address], [address] [place] [address] [phone]
--- OUTSIDE RECORDS SUMMARY | 2021-01-15 11:38 | CCD ---
Author Author [facility] Organization [facility] Address Unknown Phone Unavailable Care Team Providers Care Sql Server Dba Name Role Phone Laura Pablo Unavailable PROBLEMS Type Condition ICD9-CM Code [id number] Code Onset Dates Condition S tatus W/U Status Risk SNOMED Code Notes Problem HTN (hypertension) I10 Active confirmed 3 6072393 Problem PUD (peptic ulcer disease) K27.9 Active confirmed 43681589 Problem Primary insomnia F51.01 Active confirmed 397 2004 Problem Hypophosphatemia E83.39 Active confirmed 499 6001 Problem Gastroesophageal reflux disease without esophagitis K21.9 Active confirmed 859920250 Problem Hypertriglyceridemia E78.1 Active confirmed 015650781 Problem Anxiety F41.9 Active confirmed [id number] ALLERGIES No Known Allergies ENCOUNTERS from 1977 to 2020-11-16 Encounter Location Date Provider Diagnosis [address] [place] [address] Nov, Laura Pablo IMMUNIZATIONS Vaccine Route Administration [...] Education Language: Question Answer Notes Languages spoken: [place] Domestic Violence: Question Answer Notes Status: Drug [...] Notes Start Da te End Date Status Ambien 5 MG 1 tablet at bedtime Orally O nce a day at bedtime as needed MDD = 1 for 30 days Oct, Active amLODIPine Besylate 2.5 MG 1 tablet Orally Once a day for 30 day(s) Active Famotidine 40 MG 1 tablet Orally twice a day for 90 days 2 July, Active Benicar 20 mg 1 tab(s) Orally Once a day for 90 day(s) Dec, Active Loratadine 10 MG 1 tablet Orally Once a day Active Vitamin D 1000 UNIT 2 tablet Orally Once a day Active Probiotic - as directed Orally Activ e Multivitamin Adult - as directed Orally Active Microgestin 24 Fe 1-20 MG-MCG 1 tablet Orally Once a day for 84 days Oct, Active Omeprazole 40 MG 1 capsule 30 minutes before morning meal Orally twice a day Oct, Active busPIRone HCl 15 MG 1 tablet orally twice a day for 30 days Active Microgestin 1/20 1-20 MG-MCG 1 tablet Orally Daily for Three Weeks, 1 Week off Active PROCEDURES No Information RESULTS No Results REASON FOR VISIT Neg. H Pylori MEDICAL (GENERAL) HISTORY Type Description Date Medical [...] Medication Name Sig Start Date Stop Date Ambien 5 MG 1 tablet at bedtime Orally O nce a day at bedtime as needed MDD = 1 for 30 days Oct, Omeprazole 40 MG 1 capsule 30 minutes before morning meal Orally twice a day Oct, Famotidine 40 MG 1 tablet Orally twice a day for 90 days July, busPIRone HCl 15 MG 1 tablet orally twice a day for 30 days Next Appt Details Provider Name:Laura Pablo, 2020-11 04:15:00 PM, [address], , [place], [address], Provider Name:Masood Brown, 2020-12-18 03:30:00 PM, [address] [facility], , [place], [address], Insurance Providers Payer Name Payer Address Payer Phone Insured Name Patient Relati onship to Insured Coverage Start Date Coverage End Date [employer] [address] [place] [phone] EDUARD CARLISLE self
--- OUTSIDE RECORDS SUMMARY | 2021-01-15 11:38 | CCD ---
Author Author [facility] Organization [facility] Address Unknown Phone Unavailable Care Team Providers Care Logistics Engineer Name Role Phone Laura Pablo Unavailable PROBLEMS Type Condition ICD9-CM Code ZZE36-GL Code Onset Dates Condition S tatus W/U Status Risk SNOMED Code Notes Problem HTN (hypertension) I10 Active confirmed 3 9834547 Problem PUD (peptic ulcer disease) K27.9 Active confirmed 35381827 Problem Primary insomnia F51.01 Active confirmed 397 2004 Problem Hypophosphatemia E83.39 Active confirmed 499 6001 Problem Gastroesophageal reflux disease without esophagitis K21.9 Active confirmed 015631475 Problem Hypertriglyceridemia E78.1 Active confirmed 998719624 Problem Anxiety F41.9 Active confirmed 74784557 ALLERGIES No Known Allergies ENCOUNTERS from 1977 to 2020-11-27 Encounter Location Date Provider Diagnosis [address] [place] [address] Oct, Laura Bev Gastroesophageal reflux disease without esophagitis K21.9 ; PUD (peptic ulcer disease) K27.9 ; Primary insomnia F51.01 and Anxiety F41.9 IMMUNIZATIONS Vaccine Route Administration [...] Education Language: Question Answer Notes Languages spoken: [place] Domestic Violence: Question Answer Notes Status: Drug and Alcohol Question Answer Notes Total Score: 0 Interpretation: No problems reported BMI Care Goal Follow-Up Question Answer Notes Above Normal BMI Follow-Up Dietary management educatio n, guidance, and counseling Tobacco Use: Question Answer Notes Are you a: never smoker never smoker REASON FOR REFERRAL No Information VITAL SIGNS Weight 240.8 lbs Oct, Height 67 in Oct, BMI 37.71 kg/m2 Oct, Heart Rate 110 /min Oct, Respiratory Rate 18 /min Oct, Temperature 97.8 degrees Fahrenheit Oct, Oximetry 100 Oct, Blood pressure systolic 140 mm Hg Oct, Blood pressure diastolic 86 mm Hg Oct, MEDICATIONS Medication SIG (Take, Route, Frequency, Duration) Notes Start Da te End Date Status Omeprazole 20 MG 1 cap Orally twice a day for 30 days 2020 Active Probiotic - as directed Orally Activ e Multivitamin Adult - as directed Orally Active Benicar 20 mg 1 tab(s) Orally Once a day for 90 day(s) Dec, Active Loratadine 10 MG 1 tablet Orally Once a day Active Ambien 5 MG 1 tablet at bedtime Orally O nce a day at bedtime as needed MDD = 1 for 30 days Oct, Not-Taking amLODIPine Besylate 2.5 MG 1 tablet Orally Once a day for 30 day(s) Active Microgestin 1/20 1-20 MG-MCG 1 tablet Orally Daily for Three Weeks, 1 Week off Not-Taking Microgestin 24 Fe 1-20 MG-MCG 1 tablet Orally Once a day for 84 days Oct, Active busPIRone HCl 15 MG 1 tablet orally twice a day for 30 days Active Famotidine 40 MG 1/2 tablet Orally twice a day July, Active Vitamin D 1000 UNIT 2 tablet Orally Once a day Active PROCEDURES No Information RESULTS No Results REASON FOR VISIT anxiety depression extremly bad, not harmful to self but in a dark place MEDICAL (GENERAL) HISTORY Type Description Date Medical [...] Notes Treatment Notes Treatm ent Clinical Notes Oct, Gastroesophageal reflux dise ase without esophagitis (ICD-10 - K21.9) Carafate seems to be upsetting her stomach and contrinuting to her nausea. I will stop this and restart Famotidine Await GI eval Get H. Pylori per patient request Oct, PUD (peptic ulcer disease) (ICD-10 - K27.9) Oct, Primary insomnia (ICD-10 - F51.01) Advised and Educated on administration and side effects of meds prescribed and patient verbalized understanding of the same. To be used sparingly if no sleep in a f ew days Start Melatonin 6 mg q hs as well Oct, Anxiety (ICD-10 - F41.9) Couseling as above PLAN OF TREATMENT Medication Medication Name Sig Start Date Stop Date Famotidine 40 MG 1/2 tablet Orally twice a day July, Omeprazole 20 MG 1 cap Orally twice a day for 30 days Oct, Treatment Notes Assessment Notes Clinical Notes Gastroesophageal reflux disease without esophagitis Carafate seems to be upsetting her stomach and contrinuting to her nausea. I will stop this and restart FamotidineAwait GI evalGet H. Pylori per patient request Primary insomnia Advised and Educated on administration and side effects of meds prescribed and patient verbalized understanding of the same. To be used sparingly if no sleep in a f ew daysStart Melatonin 6 mg q hs as well Anxiety Couseling as above Next Appt Details as scheduled Reason: Provider Name:Masood Brown, 2020-12-18 03:30:00 PM, [address] [facility], , [place], [address], Insurance Providers Payer Name Payer Address Payer Phone Insured Name Patient Relati onship to Insured Coverage Start Date Coverage End Date MAKEDA MILLAN [address] [facility] [phone] EDUARD CARLISLE
--- OUTSIDE RECORDS SUMMARY | 2021-01-15 11:38 | CCD ---
Author Author [facility] Address Unknown Phone Unavailable Care Team Providers Care Fun House Attendant Name Role Phone JUAN, Mamta BIGGS Unavailable Unavailable LETTIERE, Mamta BIGGS Unavailable Unavailable LETTIERE, Mamta BIGGS Unavailable Unavailable LETTIERE, Mamta BIGGS Unavailable Unavailable LETTIERE, Mamta BIGGS Unavailable Unavailable LETTIERE, Mamta BIGGS Unavailable Unavailable LETTIERE, Mamta BIGGS Unavailable Unavailable LETTIERE, Mamta BIGGS Unavailable Unavailable LETTIERE, Mamta BIGGS Unavailable Unavailable LETTIERE, Mamta BIGGS Unavailable Unavailable LETTIERE, Mamta GUAN PA Unavailable Unavailable LETTIERE, Mamta BIGGS Unavailable Unavailable LETTIERE, Mamta GUAN PA Unavailable Unavailable LETTIERE, Mamta GUAN PA Unavailable Unavailable LETTIERE, Mamta GUAN PA Unavailable Unavailable LETTIERE, Mamta GUAN PA Unavailable Unavailable LETTIERE, Mamta GUAN PA Unavailable Unavailable LETTIERE, Mamta GUAN PA Unavailable Unavailable LETTIERE, Mamta GUAN PA Unavailable Unavailable LETTIERE, Mamta BIGGS Unavailable Unavailable LETTIERE, Mamta GUAN PA Unavailable Unavailable LETTIERE, Mamta GUAN PA Unavailable Unavailable LETTIERE, Mamta GUAN PA Unavailable Unavailable LETTIERE, Mamta BIGGS Unavailable Unavailable LETTIERE, A ROGE PA Unavailable Unavailable LETTIERE, A ROGE PA Unavailable Unavailable LETTIERE, A ROGE PA Unavailable Unavailable LETTIERE, A ROGE PA Unavailable Unavailable LETTIERE, A ROGE PA Unavailable Unavailable LETTIERE, A ROGE PA Unavailable Unavailable LETTIERE, A ROGE PA Unavailable Unavailable FILIPE, B JEFFY ELEMENTARY EDUCATION TEACHER Unavailable Unavailable FILIPE, B JEFFY ELEMENTARY EDUCATION TEACHER Unavailable Unavailable FILIPE, B JEFFY ELEMENTARY EDUCATION TEACHER Unavailable Unavailable FILIPE, B JEFFY ELEMENTARY EDUCATION TEACHER Unavailable Unavailable FILIPE, B JEFFY ELEMENTARY EDUCATION TEACHER Unavailable Unavailable FILIPE, B JEFFY ELEMENTARY EDUCATION TEACHER Unavailable Unavailable FILIPE, B JEFFY ELEMENTARY EDUCATION TEACHER Unavailable Unavailable FILIPE, B JEFFY ELEMENTARY EDUCATION TEACHER Unavailable Unavailable FILIPE, B JEFFY ELEMENTARY EDUCATION TEACHER Unavailable Unavailable FILIPE, B JEFFY ELEMENTARY EDUCATION TEACHER Unavailable Unavailable FILIPE, B JEFFY ELEMENTARY EDUCATION TEACHER Unavailable Unavailable FILIPE, B JEFFY ELEMENTARY EDUCATION TEACHER Unavailable Unavailable FILIPE, B JEFFY ELEMENTARY EDUCATION TEACHER Unavailable Unavailable FILIPE, B JEFFY ELEMENTARY EDUCATION TEACHER Unavailable Unavailable FILIPE, B JEFFY ELEMENTARY EDUCATION TEACHER Unavailable Unavailable FILIEP, B JEFFY ELEMENTARY EDUCATION TEACHER Unavailable Unavailable FILIPE, B JEFFY ELEMENTARY EDUCATION TEACHER Unavailable Unavailable FILIPE, B JEFFY ELEMENTARY EDUCATION TEACHER Unavailable Unavailable FILIPE, B JEFFY ELEMENTARY EDUCATION TEACHER Unavailable Unavailable FILIPE, B JEFFY ELEMENTARY EDUCATION TEACHER Unavailable Unavailable FILIPE, B JEFFY ELEMENTARY EDUCATION TEACHER Unavailable Unavailable FILIPE, B JEFFY ELEMENTARY EDUCATION TEACHER Unavailable Unavailable FILIPE, B JEFFY ELEMENTARY EDUCATION TEACHER Unavailable Unavailable FILIPE, B JEFFY ELEMENTARY EDUCATION TEACHER Unavailable Unavailable FILIPE, B JEFFY ELEMENTARY EDUCATION TEACHER Unavailable Unavailable FILIPE, B JEFFY ELEMENTARY EDUCATION TEACHER Unavailable Unavailable FILIPE, B JEFFY ELEMENTARY EDUCATION TEACHER Unavailable Unavailable FILIPE, B JEFFY ELEMENTARY EDUCATION TEACHER Unavailable Unavailable FILIPE, B JEFFY ELEMENTARY EDUCATION TEACHER Unavailable Unavailable FILIPE, B JEFFY ELEMENTARY EDUCATION TEACHER Unavailable Unavailable FILIPE, B JEFFY ELEMENTARY EDUCATION TEACHER Unavailable Unavailable FILIPE, B JEFFY ELEMENTARY EDUCATION TEACHER Unavailable Unavailable FILIPE, B JEFFY ELEMENTARY EDUCATION TEACHER Unavailable Unavailable FILIPE, B JEFFY ELEMENTARY EDUCATION TEACHER Unavailable Unavailable FILIPE, B JEFFY ELEMENTARY EDUCATION TEACHER Unavailable Unavailable FILIPE, B JEFFY ELEMENTARY EDUCATION TEACHER Unavailable Unavailable FILIPE, B JEFFY ELEMENTARY EDUCATION TEACHER Unavailable Unavailable FILIPE, B JEFFY ELEMENTARY EDUCATION TEACHER Unavailable Unavailable FILIPE, B JEFFY ELEMENTARY EDUCATION TEACHER Unavailable Unavailable FILIPE, B JEFFY ELEMENTARY EDUCATION TEACHER Unavailable Unavailable FILIPE, B JEFFY ELEMENTARY EDUCATION TEACHER Unavailable Unavailable FILIPE, B JEFFY ELEMENTARY EDUCATION TEACHER Unavailable Unavailable FILIPE, B JEFFY ELEMENTARY EDUCATION TEACHER Unavailable Unavailable FILIPE, B JEFFY ELEMENTARY EDUCATION TEACHER Unavailable Unavailable FILIPE, B JEFFY ELEMENTARY EDUCATION TEACHER Unavailable Unavailable FILIPE, B JEFFY ELEMENTARY EDUCATION TEACHER Unavailable Unavailable FILIPE, B JEFFY ELEMENTARY EDUCATION TEACHER Unavailable Unavailable FILIPE, B JEFFY ELEMENTARY EDUCATION TEACHER Unavailable Unavailable FILIPE, B JEFFY ELEMENTARY EDUCATION TEACHER Unavailable Unavailable FILIPE, B JEFFY ELEMENTARY EDUCATION TEACHER Unavailable Unavailable FILIPE, B JEFFY ELEMENTARY EDUCATION TEACHER Unavailable Unavailable FILIPE, B JEFFY ELEMENTARY EDUCATION TEACHER Unavailable Unavailable FILIPE, B JEFFY ELEMENTARY EDUCATION TEACHER Unavailable Unavailable FILIPE, B JEFFY ELEMENTARY EDUCATION TEACHER Unavailable Unavailable FILIPE, B JEFFY ELEMENTARY EDUCATION TEACHER Unavailable Unavailable FILIPE, B JEFFY ELEMENTARY EDUCATION TEACHER Unavailable Unavailable FILIPE, B JEFFY ELEMENTARY EDUCATION TEACHER Unavailable Unavailable FILIPE, B JEFFY ELEMENTARY EDUCATION TEACHER Unavailable Unavailable FILIPE, B JEFFY ELEMENTARY EDUCATION TEACHER Unavailable Unavailable FILIPE, B JEFFY ELEMENTARY EDUCATION TEACHER Unavailable Unavailable FILIPE, B JEFFY ELEMENTARY EDUCATION TEACHER Unavailable Unavailable FILIPE, B JEFFY ELEMENTARY EDUCATION TEACHER Unavailable Unavailable Fish, Mervin Goddard MD Unavailable Unavailable Fish, Mervin Goddard MD Unavailable Unavailable Fish, Mervin Goddard MD Unavailable Unavailable Fish, Mervin Goddard MD Unavailable Unavailable Fish, Mervin Goddard MD Unavailable Unavailable Fish, Mervin Goddard MD Unavailable Unavailable Fish, Mervin Goddard MD Unavailable Unavailable Fish, Mervin Goddard MD Unavailable Unavailable Fish, Mervin Goddard MD Unavailable Unavailable Fish, Mervin Goddard MD Unavailable Unavailable Fish, Mervin Goddard MD Unavailable Unavailable Fish, Mervin Goddard MD Unavailable Unavailable Fish, Mervin Goddard MD Unavailable Unavailable Fish, Mervin Goddard MD Unavailable Unavailable Fish, Mervin Goddard MD Unavailable Unavailable Fish, Mervin Goddard MD Unavailable Unavailable Fish, Mervin Goddard MD Unavailable Unavailable Fish, Mervin Goddard MD Unavailable Unavailable Fish, Mervin Goddard MD Unavailable Unavailable Fish, Mervin Goddard MD Unavailable Unavailable Fish, Mervin Goddard MD Unavailable Unavailable Fish, Mervin Goddard MD Unavailable Unavailable Fish, Mervin Goddard MD Unavailable Unavailable Fish, Mervin Goddard MD Unavailable Unavailable Fish, Mervin Goddard MD Unavailable Unavailable Fish, Mervin Goddard MD Unavailable Unavailable Fish, Mervin Goddard MD Unavailable Unavailable Fish, Mervin Goddrad MD Unavailable Unavailable Fish, Mervin Goddard MD Unavailable Unavailable Fish, Mervin Goddard MD Unavailable Unavailable Fish, Mervin Goddard MD Unavailable Unavailable Fish, Mervin Goddard MD Unavailable Unavailable Fish, Mervin Goddard MD Unavailable Unavailable Fish, Mervin Goddard MD Unavailable Unavailable Fish, Mervin Goddard MD Unavailable Unavailable Fish, Mervin Goddard MD Unavailable Unavailable Fish, Mervin Goddard MD Unavailable Unavailable Fish, Mervin Goddard MD Unavailable Unavailable Fish, Mervin Goddard MD Unavailable Unavailable Fish, Mervin Goddard MD Unavailable Unavailable Fish, Mervin Goddard MD Unavailable Unavailable Fish, B Nitza HENDRICKSON Unavailable Unavailable Fish B Nitza HENDRICKSON Unavailable Unavailable Fish, B Nitza HENDRICKSON Unavailable Unavailable Fish B Nitza HENDRICKSON Unavailable Unavailable Fish, B Nitza HENDRICKSON Unavailable Unavailable Fish, B Nitza HENDRICKSON Unavailable Unavailable Fish, B Nitza HENDRICKSON Unavailable Unavailable Fish, B Nitza HENDRICKSON Unavailable Unavailable Fish, B Nitza HENDRICKSON Unavailable Unavailable Fish, B Nitza HENDRICKSON Unavailable Unavailable Fish, B Nitza HENDRICKSON Unavailable Unavailable Fish, B Nitza HENDRICKSON Unavailable Unavailable Fish, B Nitza HENDRICKSON Unavailable Unavailable Fish, B Nitza HENDRICKSON Unavailable Unavailable Fish, B Nitza HENDRICKSON Unavailable Unavailable Fish, B Nitza HENDRICKSON Unavailable Unavailable Fish, B Nitza HENDRICKSON Unavailable Unavailable Fish, B Nitza HENDRICKSON Unavailable Unavailable Fish, B Nitza HENDRICKSON Unavailable Unavailable Fish, B Nitza HENDRICKSON Unavailable Unavailable Fish, B Nitza HENDRICKSON Unavailable Unavailable Fish, B Nitza HENDRICKSON Unavailable Unavailable Fish, B Nitza HENDRICKSON Unavailable Unavailable Fish, B Nitza HENDRICKSON Unavailable Unavailable Maria, L Vivi PA Unavailable Unavailable Maria, L Vivi PA Unavailable Unavailable Maria, L Vivi PA Unavailable Unavailable Maria, L Vivi PA Unavailable Unavailable Maria, L Vivi PA Unavailable Unavailable Maria, L Vivi PA Unavailable Unavailable Maria, L Vivi PA Unavailable Unavailable Maria, L Vivi PA Unavailable Unavailable Maria, L Vivi PA Unavailable Unavailable Maria, L Vivi PA Unavailable Unavailable Maria, L Vivi PA Unavailable Unavailable Maria, L Vivi PA Unavailable Unavailable Maria, L Vivi PA Unavailable Unavailable Maria, L Vivi PA Unavailable Unavailable Maria, L Vivi PA Unavailable Unavailable Maria, L Vivi PA Unavailable Unavailable Maria, L Vivi PA Unavailable Unavailable Maria, L Vivi PA Unavailable Unavailable Maria, L Vivi PA Unavailable Unavailable Maria, L Vivi PA Unavailable Unavailable Maria, L Vivi PA Unavailable Unavailable Maria, L Vivi PA Unavailable Unavailable Maria, L Vivi PA Unavailable Unavailable Maria, L Vivi PA Unavailable Unavailable Maria, L Vivi PA Unavailable Unavailable Maria, L Vivi PA Unavailable Unavailable Maria, L Vivi PA Unavailable Unavailable Maria, L Vivi PA Unavailable Unavailable Maria, L Vivi PA Unavailable Unavailable Maria, L Vivi PA Unavailable Unavailable Maria, L Vivi PA Unavailable Unavailable Maria, L Vivi PA Unavailable Unavailable Maria, L Vivi PA Unavailable Unavailable Maria, L Vivi PA Unavailable Unavailable Maria, L Vivi PA Unavailable Unavailable Maria, Annie Trinidad PA Unavailable Unavailable Maria, Annie Trinidad PA Unavailable Unavailable Maria, Annie Trinidad PA Unavailable Unavailable Maria, L Vivi PA Unavailable Unavailable Re-disclosure Warning The records that you are about to access may contain information from federally-assisted alcohol or drug abuse programs. If such information is present, then the following federally mandated warning applies: This information has been disclosed to you from records protected by federal confidentiality rules (42 CFR part 2). The federal rules prohibit you from making any further disclosure of this information unless further disclosure is expressly permitted by the written consent of the person to whom it pertains or as otherwise permitted by 42 CFR part 2. A general authorization for the release of medical or other information is NOT sufficient for this purpose. The Federal rules restrict any use of the information to criminally investigate or prosecute any alcohol or drug abuse patient.The records that you are about to access may contain highly sensitive health information, the redisclosure of which is protected by Article 27-F of the [facility] Public Health law. If you continue you may have access to information: Regarding HIV / AIDS; Provided by facilities licensed or operated by the [facility] Office of Mental Health; or Provided by the [facility] Office for People With Developmental Disabilities. If such information is present, then the following [facility] mandated warning applies: This information has been disclosed to you from confidential records which are protected by state law. State law prohibits you from making any further disclosure of this information without the specific written consent of the person to whom it pertains, or as otherwise permitted by law. Any unauthorized further disclosure in violation of state law may result in a fine or senior care sentence or both. A general authorization for the release of medical or other information is NOT sufficient authorization for further disc losure. Family History Family Member Name Family Member Gender Family Member Status Date o f Status Description Data Source(s) Unknown Unknown Problem MEDENT ([facility]) Unknown Female Problem MEDENT ([facility]) Unknown Male Problem MED[facility] ([facility]) Unknown Male Problem MED[facility] ([facility]) Encounters Encounter Providers Location Date Indications Data Source(s ) Office Visit Attender: Nitza Victor MD Physical Therapy 01/10 02:15:00 PM EDT MED[facility] ([facility]) OFFICE OUTPATIENT NEW 60 MINUTES Attender: JEFFY DENT NP Ph ysical Therapy 01/09/2021 10:00:00 AM EDT [facility] ([facility]) Unknown [address] [facility] [address] 01/08/2021 12:00:00 AM EDT eCW1 ([facility]) Unknown [address] [facility] [address] 01/08/2021 12:00:00 AM EDT [facility] Outpatient [address] [facility] [address] 01/02/2021 12:00:00 AM EDT [facility]CW1 [facility]) Unknown [address] [facility] [place] [address] 12/28/2020 12:00:00 AM EDT eCW1 [facility]) Outpatient Attender: Vivi BIGGS [email or web address] 12:00:00 AM EDT - 12/28/2020 08:15:57 AM EDT [facility] ( 15ESGYN) WCenter 15 min est manager emergency [address] [place] [address] 12/18/2020 12:00:00 AM EDT eCW1 ([facility]) Unknown [address] [facility], [facility] [address] 12/18/2020 12:00:00 AM EDT eCW1 [facility]) Outpatient [address] [facility] [address] 12/15/2020 12:00:00 AM EDT eCW1 ([facility]) Unknown [address] [facility] [address] 12/14/2020 12:00:00 AM EDT eCW1 ([facility]) Unknown [address] [facility] [address] 12/14/2020 12:00:00 AM EDT eCW1 ([facility]) Unknown [address] [facility] [address] 12/12/2020 12:00:00 AM EDT eCW1 ([facility]) TeleMedicine Phone E/M by Phys 21-30 Min [address] [place] [address] 12/08/2020 12:00:00 AM EDT eCW1 ([facility]) Unknown [address] [facility] [address] 12/02/2020 12:00:00 AM EDT eCW1 ([facility]) TeleMedicine Phone E/M by Phys 21-30 Min [address] [place] [address] 12/01/2020 12:00:00 AM EDT eCW1 ([facility]) Unknown [address] [facility] [address] 11/29/2020 12:00:00 AM EDT eCW1 ([facility]) Unknown [address] [facility] [address] 11/28/2020 12:00:00 AM EDT eCW1 ([facility]) Outpatient [address] [facility] [address] 11/23/2020 12:00:00 AM EDT eCW1 ([facility]) Unknown [address] [facility] [address] 11/15/2020 12:00:00 AM EDT eCW1 ([facility]) Outpatient [address] [facility] [address] 11/14/2020 12:00:00 AM EDT eCW1 ([facility]) Unknown [address] [facility] [address] 11/13/2020 12:00:00 AM EDT eCW1 ([facility]) Unknown [address] [facility] [address] 11/10/2020 12:00:00 AM EDT eCW1 ([facility]) Unknown [address] [facility] [address] 11/10/2020 12:00:00 AM EDT eCW1 ([facility]) Unknown [address] [facility] [address] 11/09/2020 12:00:00 AM EDT eCW1 [facility]) [place]patient [address] [facility] [address] 11/08/2020 12:00:00 AM EDT eCW1 ([facility]) Outpatient [address] [facility] [address] 11/03/2020 12:00:00 AM EDT eCW1 ([facility]) Outpatient [address] [facility] [address] 10/06/2020 12:00:00 AM EDT eCW1 ([facility]) [place] [address] [facility] [address] 10/06/2020 12:00:00 AM EDT eCW1 ([facility]) [place] [address] [facility] [address] 10/02/2020 12:00:00 AM EDT eCW1 ([facility]) Outpatient [address] [facility] [address] 08/08/2020 12:00:00 AM EDT eCW1 ([facility]) Unknown [address] [facility] [address] 08/01/2020 12:00:00 AM EDT eCW1 ([facility]) Outpatient Attender: ROGE dougherty 07/02/2020 01:50:00 PM EDT [facility] ([facility]) Immunizations Vaccine Date Status Description Data Source(s) COVID-19 dose #1 given elsewhere Unspecified 09/06/2020 02:5 7:00 PM EDT completed eCW1 ([facility]) COVID-19 dose #1 given elsewhere Unspecified 09/06/2020 02:5 7:00 PM EDT completed eCW1 ([facility]) COVID-19 dose #1 given elsewhere Unspecified 09/06/2020 02:5 7:00 PM EDT completed eCW1 ([facility]) COVID-19 dose #1 given elsewhere Unspecified 09/06/2020 02:5 7:00 PM EDT completed eCW1 ([facility]) COVID-19 dose #1 given elsewhere Unspecified 09/06/2020 02:5 7:00 PM EDT completed eCW1 ([facility]) COVID-19 dose #1 given elsewhere Unspecified 09/06/2020 02:5 7:00 PM EDT completed eCW1 ([facility]) COVID-19 dose #1 given elsewhere Unspecified 09/06/2020 02:5 7:00 PM EDT completed eCW1 ([facility]) COVID-19 dose #1 given elsewhere Unspecified 09/06/2020 02:5 7:00 PM EDT completed eCW1 ([facility]) COVID-19 dose #1 given elsewhere Unspecified 09/06/2020 02:5 7:00 PM EDT completed eCW1 ([facility]) COVID-19 dose #1 given elsewhere Unspecified 09/06/2020 02:5 7:00 PM EDT completed eCW1 ([facility]) COVID-19 dose #1 given elsewhere Unspecified 09/06/2020 02:5 7:00 PM EDT completed eCW1 ([facility]) COVID-19 dose #1 given elsewhere Unspecified 09/06/2020 02:5 7:00 PM EDT completed eCW1 ([facility]) COVID-19 dose #1 given elsewhere Unspecified 09/06/2020 02:5 7:00 PM EDT completed eCW1 ([facility]) COVID-19 dose #1 given elsewhere Unspecified 09/06/2020 02:5 7:00 PM EDT completed eCW1 ([facility]) COVID-19 dose #1 given elsewhere Unspecified 09/06/2020 02:5 7:00 PM EDT completed eCW1 ([facility]) COVID-19 dose #1 given elsewhere Unspecified 09/06/2020 02:5 7:00 PM EDT completed eCW1 ([facility]) COVID-19 dose #1 given elsewhere Unspecified 09/06/2020 02:5 7:00 PM EDT completed eCW1 ([facility]) COVID-19 dose #1 given elsewhere Unspecified 09/06/2020 02:5 7:00 PM EDT completed eCW1 ([facility]) COVID-19 dose #1 given elsewhere Unspecified 09/06/2020 02:5 7:00 PM EDT completed eCW1 ([facility]) COVID-19 dose #1 given elsewhere Unspecified 09/06/2020 02:5 7:00 PM EDT completed eCW1 ([facility]) COVID-19 dose #1 given elsewhere Unspecified 09/06/2020 02:5 7:00 PM EDT completed eCW1 ([facility]) COVID-19 dose #1 given elsewhere Unspecified 09/06/2020 02:5 7:00 PM EDT completed eCW1 ([facility]) COVID-19 dose #1 given elsewhere Unspecified 09/06/2020 02:5 7:00 PM EDT completed eCW1 ([facility]) COVID-19 dose #1 given elsewhere Unspecified 09/06/2020 02:5 7:00 PM EDT completed eCW1 ([facility]) COVID-19 dose #1 given elsewhere Unspecified 09/06/2020 02:5 7:00 PM EDT completed eCW1 ([facility]) COVID-19 dose #1 given elsewhere Unspecified 09/06/2020 02:5 7:00 PM EDT completed eCW1 ([facility]) COVID-19 dose #1 given elsewhere Unspecified 09/06/2020 02:5 7:00 PM EDT completed eCW1 ([facility]) COVID-19 dose #1 given elsewhere Unspecified 09/06/2020 02:5 7:00 PM EDT completed eCW1 ([facility]) COVID-19 dose #2 given elsewhere Unspecified 05/09/2020 02:5 7:00 PM EST completed eCW1 ([facility]) COVID-19 dose #2 given elsewhere Unspecified 05/09/2020 02:5 7:00 PM EST completed eCW1 ([facility]) COVID-19 dose #2 given elsewhere Unspecified 05/09/2020 02:5 7:00 PM EST completed eCW1 ([facility]) COVID-19 dose #2 given elsewhere Unspecified 05/09/2020 02:5 7:00 PM EST completed eCW1 ([facility]) COVID-19 dose #2 given elsewhere Unspecified 05/09/2020 02:5 7:00 PM EST completed eCW1 ([facility]) COVID-19 dose #2 given elsewhere Unspecified 05/09/2020 02:5 7:00 PM EST completed eCW1 ([facility]) COVID-19 dose #2 given elsewhere Unspecified 05/09/2020 02:5 7:00 PM EST completed eCW1 ([facility]) COVID-19 dose #2 given elsewhere Unspecified 05/09/2020 02:5 7:00 PM EST completed eCW1 ([facility]) COVID-19 dose #2 given elsewhere Unspecified 05/09/2020 02:5 7:00 PM EST completed eCW1 ([facility]) COVID-19 dose #2 given elsewhere Unspecified 05/09/2020 02:5 7:00 PM EST completed eCW1 ([facility]) COVID-19 dose #2 given elsewhere Unspecified 05/09/2020 02:5 7:00 PM EST completed eCW1 ([facility]) COVID-19 dose #2 given elsewhere Unspecified 05/09/2020 02:5 7:00 PM EST completed eCW1 ([facility]) COVID-19 dose #2 given elsewhere Unspecified 05/09/2020 02:5 7:00 PM EST completed eCW1 ([facility]) COVID-19 dose #2 given elsewhere Unspecified 05/09/2020 02:5 7:00 PM EST completed eCW1 ([facility]) COVID-19 dose #2 given elsewhere Unspecified 05/09/2020 02:5 7:00 PM EST completed eCW1 ([facility]) COVID-19 dose #2 given elsewhere Unspecified 05/09/2020 02:5 7:00 PM EST completed eCW1 ([facility]) COVID-19 dose #2 given elsewhere Unspecified 05/09/2020 02:5 7:00 PM EST completed eCW1 ([facility]) COVID-19 dose #2 given elsewhere Unspecified 05/09/2020 02:5 7:00 PM EST completed eCW1 ([facility]) COVID-19 dose #2 given elsewhere Unspecified 05/09/2020 02:5 7:00 PM EST completed eCW1 ([facility]) COVID-19 dose #2 given elsewhere Unspecified 05/09/2020 02:5 7:00 PM EST completed eCW1 ([facility]) COVID-19 dose #2 given elsewhere Unspecified 05/09/2020 02:5 7:00 PM EST completed eCW1 ([facility]) COVID-19 dose #2 given elsewhere Unspecified 05/09/2020 02:5 7:00 PM EST completed eCW1 ([facility]) COVID-19 dose #2 given elsewhere Unspecified 05/09/2020 02:5 7:00 PM EST completed eCW1 ([facility]) COVID-19 dose #2 given elsewhere Unspecified 05/09/2020 02:5 7:00 PM EST completed eCW1 ([facility]) COVID-19 dose #2 given elsewhere Unspecified 05/09/2020 02:5 7:00 PM EST completed eCW1 ([facility]) COVID-19 dose #2 given elsewhere Unspecified 05/09/2020 02:5 7:00 PM EST completed eCW1 ([facility]) COVID-19 dose #2 given elsewhere Unspecified 05/09/2020 02:5 7:00 PM EST completed eCW1 ([facility]) COVID-19 dose #2 given elsewhere Unspecified 05/09/2020 02:5 7:00 PM EST completed eCW1 ([facility]) COVID-19 VACCINE Pfizer 04/29/2020 12:00:00 AM EST completed [facility] Vaccine Series Complete: YESThis Data wa s Submitted to [facility] Via [employer]. COVID-19 VACCINE Pfizer 04/08/2020 12:00:00 AM EST completed [facility] Vaccine Series Complete: NOThis Data was Submitted to [facility] Via [employer]. Medications Medication Brand Name Start Date Product Form Dose Route Admi nistrative Instructions Pharmacy Instructions Status Indications Reaction Description Data Source(s) Chlorthalidone 25 MG Oral Tablet CHLORTHALIDONE 12/30/2020 12:0 0:00 AM EDT tablet 90 TAKE ONE TABLET BY MOUTH DAILY TAKE ONE T ABLET BY MOUTH DAILY SOLD: 12/30/2020 [facility] 10 mg 12/28/2020 12:00:00 AM EDT tablet 30 TAKE ONE TABLET BY MOUTH EVERY DAY TAKE ONE TABLET BY MOUTH EVERY DAY SOLD: 12/28/2020 [facility] 320 mg 12/28/2020 12:00:00 AM EDT tablet 30 TAKE ONE TABLET BY MOUTH EVERY DAY TAKE ONE TABLET BY MOUTH EVERY DAY SOLD: 12/28/2020 [facility] Amlodipine 10 MG Oral Tablet amLODIPine (NORVASC) 10 M G tablet amLODIPine (NORVASC) 10 MG tablet 12/27/2020 12:00:00 AM EDT 10 mg Oral active Take 1 tablet (10 mg total) by mouth daily [facility] valsartan 320 MG Oral Tablet valsartan (DIOVAN) 320 MG tablet valsartan (DIOVAN) 320 MG tablet 12/27/2020 12:00:00 AM EDT 320 mg Oral acti ve Take 1 tablet (320 mg total) by mouth daily [facility] 0.35 mg 12/19/2020 12:00:00 AM EDT tablet 84 TAKE ONE TABLET BY MOUTH EVERY DAY TAKE ONE TABLET BY MOUTH EVERY DAY SOLD: 12/22/2020 [facility] Lata 0.35 MG Lata 0.35 MG 12/18/2020 12:00:00 AM EDT 1.0 { tablet} active Lata 0.35 MG eCW1 ([facility]) Lata 0.35 MG Lata 0.35 MG 12/18/2020 12:00:00 AM EDT 1.0 { tablet} active Lata 0.35 MG eCW1 ([facility]) Lata 0.35 MG Lata 0.35 MG 12/18/2020 12:00:00 AM EDT 1.0 { tablet} active Lata 0.35 MG eCW1 ([facility]) Lata 0.35 MG Lata 0.35 MG 12/18/2020 12:00:00 AM EDT 1.0 { tablet} active Lata 0.35 MG eCW1 ([facility]) Lata 0.35 MG Lata 0.35 MG 12/18/2020 12:00:00 AM EDT 1.0 { tablet} active Lata 0.35 MG eCW1 ([facility]) Lata 0.35 MG Lata 0.35 MG 12/18/2020 12:00:00 AM EDT 1.0 { tablet} active Lata 0.35 MG eCW1 ([facility]) Lata 0.35 MG Lata 0.35 MG 12/18/2020 12:00:00 AM EDT 1.0 { tablet} active Lata 0.35 MG eCW1 ([facility]) Citalopram 10 MG Oral Tablet Citalopram Hydrobromide 1 0 MG Citalopram Hydrobromide 10 MG 12/15/2020 12:00:00 AM EDT 1.0 {tablet} active Citalopram Hydrobromide 10 MG eCW1 ([facility]) Citalopram 10 MG Oral Tablet Citalopram Hydrobromide 1 0 MG Citalopram Hydrobromide 10 MG 12/15/2020 12:00:00 AM EDT 1.0 {tablet} active Citalopram Hydrobromide 10 MG eCW1 ([facility]) Citalopram 10 MG Oral Tablet citalopram (CeleXA) 10 MG tablet citalopram (CeleXA) 10 MG tablet 12/15/2020 12:00:00 AM EDT 10 mg Oral active Take 10 mg by mouth daily [facility] Amlodipine 2.5 MG Oral Tablet amLODIPine (NORVASC) 2.5 MG tablet amLODIPine (NORVASC) 2.5 MG tablet 12/15/2020 12:00:00 AM EDT 5 mg Oral aborted Take 5 mg by mouth daily [facility] Citalopram 10 MG Oral Tablet Citalopram Hydrobromide 1 0 MG Citalopram Hydrobromide 10 MG 12/15/2020 12:00:00 AM EDT 1.0 {tablet} active Citalopram Hydrobromide 10 MG eCW1 ([facility]) Citalopram 10 MG Oral Tablet Citalopram Hydrobromide 1 0 MG Citalopram Hydrobromide 10 MG 12/15/2020 12:00:00 AM EDT 1.0 {tablet} active Citalopram Hydrobromide 10 MG eCW1 ([facility]) 10 mg 12/15/2020 12:00:00 AM EDT tablet 30 TAKE ONE TABLET BY MOUTH EVERY DAY TAKE ONE TABLET BY MOUTH EVERY DAY SOLD: 12/15/2020 [facility] 2.5 mg 12/15/2020 12:00:00 AM EDT tablet 30 TAKE ONE TABLET BY MOUTH EVERY DAY TAKE ONE TABLET BY MOUTH EVERY DAY SOLD: 12/15/2020 [facility] Omeprazole 20 MG Delayed Release Oral Ca psule omeprazole (PriLOSEC) 20 MG capsule omeprazole (PriLOSEC) 20 MG capsule 12/01/2020 12:00:00 AM EDT 20 mg Oral active Take 20 mg by mouth 2 (two) times a day [facility] valsartan 320 MG Oral Tablet valsartan (DIOVAN) 320 MG tablet valsartan (DIOVAN) 320 MG tablet 11/27/2020 12:00:00 AM EDT 320 mg Oral abor chloe Take 320 mg by mouth daily [facility] 320 mg 11/27/2020 12:00:00 AM EDT tablet 30 TAKE ONE TABLET BY MOUTH EVERY DAY TAKE ONE TABLET BY MOUTH EVERY DAY SOLD: 11/27/2020 [facility] 10 mg 11/27/2020 12:00:00 AM EDT tablet 30 TAKE ONE TABLET BY MOUTH EVERY DAY TAKE ONE TABLET BY MOUTH EVERY DAY SOLD: 11/27/2020 [facility] 20 mg 11/24/2020 12:00:00 AM EDT capsule,delayed release (DR/EC) 30 TAKE ONE CAPSULE BY MOUTH TWICE A DAY TAKE ONE CAPSULE BY MOUTH TWICE A DAY SOLD: 11/27/2020 [facility] buspirone hydrochloride 15 MG Oral Tablet BUSPIRONE HCL 11/15/2020 12:00:00 AM EDT tablet 60 TAKE ONE TABLET BY MOUTH TWI CE A DAY TAKE ONE TABLET BY MOUTH TWICE A DAY SOLD: 11/16/2020 [facility] Famotidine 40 MG Oral Tablet FAMOTIDINE 11/15/2020 12:00:00 AM EDT tab let 180 TAKE ONE TABLET BY MOUTH TWICE A DAY TAKE ONE TABLET BY MOUTH TWICE A DAY SOLD: 11/16/2020 [facility] Famotidine 40 MG Oral Tablet famotidine (PEPCID) 40 MG tablet famotidine (PEPCID) 40 MG tablet 11/15/2020 12:00:00 AM EDT 20 mg Oral active Take 20 mg by mouth 2 (two) times a day [facility] Zolpidem tartrate 5 MG Oral Tablet [Ambien] Ambien 5 MG Ambi en 5 MG 11/14/2020 12:00:00 AM EDT 1.0 {tablet_at_bedtime} active Ambien 5 MG eCW1 ([facility]) Zolpidem tartrate 5 MG Oral Tablet [Ambien] Ambien 5 MG Ambi en 5 MG 11/14/2020 12:00:00 AM EDT 1.0 {tablet_at_bedtime} active Ambien 5 MG eCW1 ([facility]) Zolpidem tartrate 5 MG Oral Tablet [Ambien] Ambien 5 MG Ambi en 5 MG 11/14/2020 12:00:00 AM EDT 1.0 {tablet_at_bedtime} active Ambien 5 MG eCW1 ([facility]) 2.5 mg 11/14/2020 12:00:00 AM EDT tablet 30 TAKE ONE TABLET BY MOUTH DAILY TAKE ONE TABLET BY MOUTH DAILY SOLD: 11/14/2020 [facility] Zolpidem tartrate 5 MG Oral Tablet [Ambien] Ambien 5 MG Ambi en 5 MG 11/14/2020 12:00:00 AM EDT 1.0 {tablet_at_bedtime} suspended Ambien 5 MG eCW1 ([facility]) Zolpidem tartrate 5 MG Oral Tablet [Ambien] Ambien 5 MG Ambi en 5 MG 11/14/2020 12:00:00 AM EDT 1.0 {tablet_at_bedtime} active Ambien 5 MG eCW1 ([facility]) Zolpidem tartrate 5 MG Oral Tablet [Ambien] Ambien 5 MG Ambi en 5 MG 11/14/2020 12:00:00 AM EDT 1.0 {tablet_at_bedtime} active Ambien 5 MG eCW1 ([facility]) Zolpidem tartrate 5 MG Oral Tablet [Ambien] Ambien 5 MG Ambi en 5 MG 11/14/2020 12:00:00 AM EDT 1.0 {tablet_at_bedtime} suspended Ambien 5 MG eCW1 ([facility]) Zolpidem tartrate 5 MG Oral Tablet [Ambien] Ambien 5 MG Ambi en 5 MG 11/14/2020 12:00:00 AM EDT 1.0 {tablet_at_bedtime} active Ambien 5 MG eCW1 ([facility]) Zolpidem tartrate 5 MG Oral Tablet [Ambien] Ambien 5 MG Ambi en 5 MG 11/14/2020 12:00:00 AM EDT 1.0 {tablet_at_bedtime} active Ambien 5 MG eCW1 ([facility]) Zolpidem tartrate 5 MG Oral Tablet [Ambien] Ambien 5 MG Ambi en 5 MG 11/14/2020 12:00:00 AM EDT 1.0 {tablet_at_bedtime} active Ambien 5 MG eCW1 ([facility]) Zolpidem tartrate 5 MG Oral Tablet [Ambien] Ambien 5 MG Ambi en 5 MG 11/14/2020 12:00:00 AM EDT 1.0 {tablet_at_bedtime} active Ambien 5 MG eCW1 ([facility]) Zolpidem tartrate 5 MG Oral Tablet [Ambien] Ambien 5 MG Ambi en 5 MG 11/14/2020 12:00:00 AM EDT 1.0 {tablet_at_bedtime} active Ambien 5 MG eCW1 ([facility]) Zolpidem tartrate 5 MG Oral Tablet [Ambien] Ambien 5 MG Ambi en 5 MG 11/14/2020 12:00:00 AM EDT 1.0 {tablet_at_bedtime} active Ambien 5 MG eCW1 ([facility]) Zolpidem tartrate 5 MG Oral Tablet [Ambien] Ambien 5 MG Ambi en 5 MG 11/14/2020 12:00:00 AM EDT 1.0 {tablet_at_bedtime} active Ambien 5 MG eCW1 ([facility]) Zolpidem tartrate 5 MG Oral Tablet [Ambien] Ambien 5 MG Ambi en 5 MG 11/14/2020 12:00:00 AM EDT 1.0 {tablet_at_bedtime} active Ambien 5 MG eCW1 ([facility]) 40 mg 11/10/2020 12:00:00 AM EDT capsule,delayed release (DR/EC) 60 TAKE ONE CAPSULE BY MOUTH TWICE A DAY 30 MIN BEFORE MEAL TAKE ONE CAPSULE BY MOUTH TWICE A DAY 30 MIN BEFORE MEAL SOLD: 11/10/2020 [facility] Omeprazole 40 MG Delayed Release Oral Capsule Omeprazole 40 MG 11/08/2020 12:00:00 AM EDT active Omeprazo le 40 MG eCW1 ([facility]) Omeprazole 20 MG Delayed Release Oral Capsule Omeprazole 20 MG 11/08/2020 12:00:00 AM EDT active Omeprazo le 20 MG eCW1 ([facility]) Omeprazole 20 MG Delayed Release Oral Capsule Omeprazole 20 MG 11/08/2020 12:00:00 AM EDT active Omeprazo le 20 MG eCW1 ([facility]) Sucralfate 1000 MG Oral Tablet [Carafate] Carafate 1 GM Petrona fate 1 GM 11/08/2020 12:00:00 AM EDT 1.0 {tablet_on_an_empty_stomach} active Carafate 1 GM eCW1 ([facility]) Omeprazole 20 MG Delayed Release Oral Capsule Omeprazole 20 MG 11/08/2020 12:00:00 AM EDT active Omeprazo le 20 MG eCW1 ([facility]) Omeprazole 20 MG Delayed Release Oral Capsule Omeprazole 20 MG 11/08/2020 12:00:00 AM EDT active Omeprazo le 20 MG eCW1 ([facility]) Omeprazole 20 MG Delayed Release Oral Capsule Omeprazole 20 MG 11/08/2020 12:00:00 AM EDT active Omeprazo le 20 MG eCW1 ([facility]) Omeprazole 20 MG Delayed Release Oral Capsule Omeprazole 20 MG 11/08/2020 12:00:00 AM EDT active Omeprazo le 20 MG eCW1 ([facility]) Omeprazole 20 MG Delayed Release Oral Capsule Omeprazole 20 MG 11/08/2020 12:00:00 AM EDT active Omeprazo le 20 MG eCW1 ([facility]) Omeprazole 20 MG Delayed Release Oral Capsule Omeprazole 20 MG 11/08/2020 12:00:00 AM EDT active Omeprazo le 20 MG eCW1 ([facility]) Omeprazole 20 MG Delayed Release Oral Capsule Omeprazole 20 MG 11/08/2020 12:00:00 AM EDT active Omeprazo le 20 MG eCW1 ([facility]) Omeprazole 20 MG Delayed Release Oral Capsule Omeprazole 20 MG 11/08/2020 12:00:00 AM EDT active Omeprazo le 20 MG eCW1 ([facility]) Omeprazole 20 MG Delayed Release Oral Capsule Omeprazole 20 MG 11/08/2020 12:00:00 AM EDT active Omeprazo le 20 MG eCW1 ([facility]) Omeprazole 20 MG Delayed Release Oral Capsule Omeprazole 20 MG 11/08/2020 12:00:00 AM EDT active Omeprazo le 20 MG eCW1 ([facility]) 1 gram 11/08/2020 12:00:00 AM EDT tablet 60 TAKE ONE TABLET BY MOUTH TWICE A DAY ON EMPTY STOMACH TAKE ONE TABLET BY MOUTH TWICE A DAY ON EMPTY STOMACH SOLD: 11/08/2020 [facility] Omeprazole 20 MG Delayed Release Oral Capsule Omeprazole 20 MG 11/08/2020 12:00:00 AM EDT active Omeprazo le 20 MG eCW1 ([facility]) Omeprazole 40 MG Delayed Release Oral Capsule Omeprazole 40 MG 11/08/2020 12:00:00 AM EDT active Omeprazo le 40 MG eCW1 ([facility]) Omeprazole 40 MG Delayed Release Oral Capsule Omeprazole 40 MG 11/08/2020 12:00:00 AM EDT active Omeprazo le 40 MG eCW1 ([facility]) Omeprazole 20 MG Delayed Release Oral Capsule Omeprazole 20 MG 11/08/2020 12:00:00 AM EDT active Omeprazo le 20 MG eCW1 ([facility]) Omeprazole 40 MG Delayed Release Oral Capsule Omeprazole 40 MG 11/08/2020 12:00:00 AM EDT active Omeprazo le 40 MG eCW1 ([facility]) Omeprazole 40 MG Delayed Release Oral Capsule Omeprazole 40 MG 11/08/2020 12:00:00 AM EDT active Omeprazo le 40 MG eCW1 ([facility]) Omeprazole 20 MG Delayed Release Oral Capsule Omeprazole 20 MG 11/08/2020 12:00:00 AM EDT active Omeprazo le 20 MG eCW1 ([facility]) Omeprazole 40 MG Delayed Release Oral Capsule Omeprazole 40 MG 11/08/2020 12:00:00 AM EDT active Omeprazo le 40 MG eCW1 ([facility]) Omeprazole 20 MG Delayed Release Oral Capsule Omeprazole 20 MG 11/08/2020 12:00:00 AM EDT active Omeprazo le 20 MG eCW1 ([facility]) Omeprazole 20 MG Delayed Release Oral Capsule Omeprazole 20 MG 11/08/2020 12:00:00 AM EDT active Omeprazo le 20 MG eCW1 ([facility]) Gianni 24 Fe 04/05 27 Day Pack 1 mg-20 mcg (24)/75 mg (4 ) NORETHINDRONE-E.ESTRADIOL-IRON 11/04/2020 12:00:00 AM EDT tablet 84 TAKE ONE TABLET BY MOUTH EVERY DAY TAKE ONE TABLET BY MOUTH EVERY DAY SOLD: 11/04/2020 [facility] Microgestin 24 Fe 1-20 MG-MCG Microgestin 24 Fe 1-20 MG-MCG 11/03/2020 12:00:00 AM EDT 1.0 {tablet} active Microgestin 24 Fe 1-20 MG-MCG eCW1 ([facility]) Microgestin 24 Fe 1-20 MG-MCG Microgestin 24 Fe 1-20 MG-MCG 11/03/2020 12:00:00 AM EDT 1.0 {tablet} active Microgestin 24 Fe 1-20 MG-MCG eCW1 ([facility]) Microgestin 24 Fe 1-20 MG-MCG Microgestin 24 Fe 1-20 MG-MCG 11/03/2020 12:00:00 AM EDT 1.0 {tablet} active Microgestin 24 Fe 1-20 MG-MCG eCW1 ([facility]) Microgestin 24 Fe 1-20 MG-MCG Microgestin 24 Fe 1-20 MG-MCG 11/03/2020 12:00:00 AM EDT 1.0 {tablet} active Microgestin 24 Fe 1-20 MG-MCG eCW1 ([facility]) Microgestin 24 Fe 1-20 MG-MCG Microgestin 24 Fe 1-20 MG-MCG 11/03/2020 12:00:00 AM EDT 1.0 {tablet} active Microgestin 24 Fe 1-20 MG-MCG eCW1 ([facility]) Microgestin 24 Fe 1-20 MG-MCG Microgestin 24 Fe 1-20 MG-MCG 11/03/2020 12:00:00 AM EDT 1.0 {tablet} active Microgestin 24 Fe 1-20 MG-MCG eCW1 ([facility]) Microgestin 24 Fe 1-20 MG-MCG Microgestin 24 Fe 1-20 MG-MCG 11/03/2020 12:00:00 AM EDT 1.0 {tablet} active Microgestin 24 Fe 1-20 MG-MCG eCW1 ([facility]) Microgestin 24 Fe 1-20 MG-MCG Microgestin 24 Fe 1-20 MG-MCG 11/03/2020 12:00:00 AM EDT 1.0 {tablet} active Microgestin 24 Fe 1-20 MG-MCG eCW1 ([facility]) Microgestin 24 Fe 1-20 MG-MCG Microgestin 24 Fe 1-20 MG-MCG 11/03/2020 12:00:00 AM EDT 1.0 {tablet} active Microgestin 24 Fe 1-20 MG-MCG eCW1 ([facility]) Microgestin 24 Fe 1-20 MG-MCG Microgestin 24 Fe 1-20 MG-MCG 11/03/2020 12:00:00 AM EDT 1.0 {tablet} active Microgestin 24 Fe 1-20 MG-MCG eCW1 ([facility]) Microgestin 24 Fe 1-20 MG-MCG Microgestin 24 Fe 1-20 MG-MCG 11/03/2020 12:00:00 AM EDT 1.0 {tablet} active Microgestin 24 Fe 1-20 MG-MCG eCW1 ([facility]) Microgestin 24 Fe 1-20 MG-MCG Microgestin 24 Fe 1-20 MG-MCG 11/03/2020 12:00:00 AM EDT 1.0 {tablet} active Microgestin 24 Fe 1-20 MG-MCG eCW1 ([facility]) Microgestin 24 Fe 1-20 MG-MCG Microgestin 24 Fe 1-20 MG-MCG 11/03/2020 12:00:00 AM EDT 1.0 {tablet} active Microgestin 24 Fe 1-20 MG-MCG eCW1 ([facility]) Microgestin 24 Fe 1-20 MG-MCG Microgestin 24 Fe 1-20 MG-MCG 11/03/2020 12:00:00 AM EDT 1.0 {tablet} active Microgestin 24 Fe 1-20 MG-MCG eCW1 ([facility]) Microgestin 24 Fe 1-20 MG-MCG Microgestin 24 Fe 1-20 MG-MCG 11/03/2020 12:00:00 AM EDT 1.0 {tablet} active Microgestin 24 Fe 1-20 MG-MCG eCW1 ([facility]) Microgestin 24 Fe 1-20 MG-MCG Microgestin 24 Fe 1-20 MG-MCG 11/03/2020 12:00:00 AM EDT 1.0 {tablet} active Microgestin 24 Fe 1-20 MG-MCG eCW1 ([facility]) Microgestin 24 Fe 1-20 MG-MCG Microgestin 24 Fe 1-20 MG-MCG 11/03/2020 12:00:00 AM EDT 1.0 {tablet} active Microgestin 24 Fe 1-20 MG-MCG eCW1 ([facility]) Microgestin 24 Fe 1-20 MG-MCG Microgestin 24 Fe 1-20 MG-MCG 11/03/2020 12:00:00 AM EDT 1.0 {tablet} active Microgestin 24 Fe 1-20 MG-MCG eCW1 ([facility]) Microgestin 24 Fe 1-20 MG-MCG Microgestin 24 Fe 1-20 MG-MCG 11/03/2020 12:00:00 AM EDT 1.0 {tablet} active Microgestin 24 Fe 1-20 MG-MCG eCW1 ([facility]) Microgestin 24 Fe 1-20 MG-MCG Microgestin 24 Fe 1-20 MG-MCG 11/03/2020 12:00:00 AM EDT 1.0 {tablet} active Microgestin 24 Fe 1-20 MG-MCG eCW1 ([facility]) Microgestin 24 Fe 1-20 MG-MCG Microgestin 24 Fe 1-20 MG-MCG 11/03/2020 12:00:00 AM EDT 1.0 {tablet} active Microgestin 24 Fe 1-20 MG-MCG eCW1 ([facility]) 0.75 % 09/27/2020 12:00:00 AM EDT gel 70 INSERT 1 APPLICATORFUL VAGINALLY EVERY EVENING FOR 5 DAYS INSERT 1 APPLICATORFUL VAGINALLY EVERY E VENING FOR 5 DAYS SOLD: 09/27/2020 [facility] buspirone hydrochloride 15 MG Oral Tablet BUSPIRONE HCL 08/09/2020 12:00:00 AM EDT tablet 90 TAKE ONE TABLET BY MOUTH KP DAY TAKE ONE TABLET BY MOUTH EVERY DAY SOLD: 08/22/2020 [facility] Famotidine 40 MG Oral Tablet Famotidine 40 MG 08/08/2020 12:00:00 AM E DT active Famotidine 40 MG eCW1 ([facility]) Famotidine 40 MG Oral Tablet Famotidine 40 MG 08/08/2020 12:00:00 A M EDT 1.0 {tablet_at_bedtime} active Famotidine 4 0 MG eCW1 ([facility]) Famotidine 40 MG Oral Tablet Famotidine 40 MG 08/08/2020 12:00:00 A M EDT 1.0 {tablet_at_bedtime} active Famotidine 4 0 MG eCW1 ([facility]) Famotidine 40 MG Oral Tablet Famotidine 40 MG 08/08/2020 12:00:00 A M EDT 1.0 {tablet} active Famotidine 40 MG eCW1 ( [facility]) Famotidine 40 MG Oral Tablet Famotidine 40 MG 08/08/2020 12:00:00 AM E DT active Famotidine 40 MG eCW1 ([facility]) Famotidine 40 MG Oral Tablet Famotidine 40 MG 08/08/2020 12:00:00 AM E DT active Famotidine 40 MG eCW1 ([facility]) Famotidine 40 MG Oral Tablet Famotidine 40 MG 08/08/2020 12:00:00 A M EDT 1.0 {tablet} active Famotidine 40 MG eCW1 ( [facility]) Famotidine 40 MG Oral Tablet Famotidine 40 MG 08/08/2020 12:00:00 A M EDT 1.0 {tablet_at_bedtime} active Famotidine 4 0 MG eCW1 ([facility]) Famotidine 40 MG Oral Tablet Famotidine 40 MG 08/08/2020 12:00:00 AM E DT active Famotidine 40 MG eCW1 ([facility]) Famotidine 40 MG Oral Tablet Famotidine 40 MG 08/08/2020 12:00:00 A M EDT 1.0 {tablet_at_bedtime} suspended Famotidine 40 MG eCW1 ([facility]) Famotidine 40 MG Oral Tablet Famotidine 40 MG 08/08/2020 12:00:00 AM E DT active Famotidine 40 MG eCW1 ([facility]) Famotidine 40 MG Oral Tablet Famotidine 40 MG 08/08/2020 12:00:00 AM E DT active Famotidine 40 MG eCW1 ([facility]) Famotidine 40 MG Oral Tablet Famotidine 40 MG 08/08/2020 12:00:00 AM E DT active Famotidine 40 MG eCW1 ([facility]) Famotidine 40 MG Oral Tablet Famotidine 40 MG 08/08/2020 12:00:00 A M EDT 1.0 {tablet} active Famotidine 40 MG eCW1 ( [facility]) Famotidine 40 MG Oral Tablet Famotidine 40 MG 08/08/2020 12:00:00 AM E DT active Famotidine 40 MG eCW1 ([facility]) Famotidine 40 MG Oral Tablet Famotidine 40 MG 08/08/2020 12:00:00 AM E DT active Famotidine 40 MG eCW1 ([facility]) Famotidine 40 MG Oral Tablet Famotidine 40 MG 08/08/2020 12:00:00 AM E DT active Famotidine 40 MG eCW1 ([facility]) Famotidine 40 MG Oral Tablet Famotidine 40 MG 08/08/2020 12:00:00 AM E DT active Famotidine 40 MG eCW1 ([facility]) Famotidine 40 MG Oral Tablet Famotidine 40 MG 08/08/2020 12:00:00 AM E DT active Famotidine 40 MG eCW1 ([facility]) Famotidine 40 MG Oral Tablet Famotidine 40 MG 08/08/2020 12:00:00 A M EDT 1.0 {tablet} active Famotidine 40 MG eCW1 ( [facility]) Famotidine 40 MG Oral Tablet Famotidine 40 MG 08/08/2020 12:00:00 AM E DT active Famotidine 40 MG eCW1 ([facility]) Famotidine 40 MG Oral Tablet Famotidine 40 MG 08/08/2020 12:00:00 AM E DT active Famotidine 40 MG eCW1 ([facility]) Famotidine 40 MG Oral Tablet Famotidine 40 MG 08/08/2020 12:00:00 AM E DT active Famotidine 40 MG eCW1 ([facility]) Famotidine 40 MG Oral Tablet Famotidine 40 MG 08/08/2020 12:00:00 AM E DT active Famotidine 40 MG eCW1 ([facility]) Famotidine 40 MG Oral Tablet Famotidine 40 MG 08/08/2020 12:00:00 AM E DT active Famotidine 40 MG eCW1 ([facility]) Famotidine 40 MG Oral Tablet Famotidine 40 MG 08/08/2020 12:00:00 A M EDT 1.0 {tablet_at_bedtime} active Famotidine 4 0 MG eCW1 ([facility]) Famotidine 40 MG Oral Tablet Famotidine 40 MG 08/08/2020 12:00:00 A M EDT 1.0 {tablet_at_bedtime} active Famotidine 4 0 MG eCW1 ([facility]) Famotidine 40 MG Oral Tablet Famotidine 40 MG 08/08/2020 12:00:00 A M EDT 1.0 {tablet} active Famotidine 40 MG eCW1 ( [facility]) buspirone hydrochloride 15 MG Oral Tablet BUSPIRONE HCL 07/06/2020 12:00:00 AM EDT tablet 60 TAKE ONE TABLET BY MOUTH FOR 1 WEEK THEN INCREASE TO 1 TABLET TWO TIMES A DAY TAKE ONE TABLET BY MOUTH FOR 1 WEEK THEN INCREASE TO 1 TABLET TWO TIMES A DAY SOLD: 07/09/2020 [facility] buspirone hydrochloride 15 MG Oral Tablet BUSPIRONE HCL 11/16/2019 12:00:00 AM EDT tablet 60 TAKE ONE TABLET BY MOUTH EVERY DAY FOR 1 WEEK THEN INCREASE TO 1 TABLET TWO TIMES A DAY TAKE ONE TABLET BY MOUTH EVERY DAY FOR 1 WEEK THEN INCREASE TO 1 TABLET TWO TIMES A DAY SOLD: 03/23/2020 [facility] buspirone hydrochloride 15 MG Oral Tablet BUSPIRONE HCL 11/16/2019 12:00:00 AM EDT tablet 60 TAKE ONE TABLET BY MOUTH EVERY DAY FOR 1 WEEK THEN INCREASE TO 1 TABLET TWO TIMES A DAY TAKE ONE TABLET BY MOUTH EVERY DAY FOR 1 WEEK THEN INCREASE TO 1 TABLET TWO TIMES A DAY SOLD: 11/16/2019 [facility] buspirone hydrochloride 15 MG Oral Tablet BUSPIRONE HCL 11/16/2019 12:00:00 AM EDT tablet 60 TAKE ONE TABLET BY MOUTH EVERY DAY FOR 1 WEEK THEN INCREASE TO 1 TABLET TWO TIMES A DAY TAKE ONE TABLET BY MOUTH EVERY DAY FOR 1 WEEK THEN INCREASE TO 1 TABLET TWO TIMES A DAY SOLD: 01/05/2020 [facility] 1.5-30 mg-mcg 11/02/2019 12:00:00 AM EDT tablet 84 TAKE ONE TABLET BY MOUTH EVERY DAY TAKE ONE TABLET BY MOUTH EVERY DAY SOLD: 04/23/2020 [facility] MICROGESTIN 1.5/30 21 Day Pack 1.5-30 mg-mcg NORETHINDRONE A C-ETH ESTRADIOL 11/02/2019 12:00:00 AM EDT tablet 84 TAKE ONE TABLE T BY MOUTH EVERY DAY TAKE ONE TABLET BY MOUTH EVERY DAY SOLD: 08/08/2020 [facility] 1.5-30 mg-mcg 11/02/2019 12:00:00 AM EDT tablet 84 TAKE ONE TABLET BY MOUTH EVERY DAY TAKE ONE TABLET BY MOUTH EVERY DAY SOLD: 02/17/2020 [facility] Insurance Providers Payer name Policy type / Coverage type Policy ID Covered alliance party ID Covered alliance party's relationship to paige Policy Paige Plan Information [facility] [id number] [facility] [id number] MVP [id number] Serena [id number] ANSI-Commercial [id number] ANSI-Commercial [id number] [employer] (HMO) [id number] Self [id number] [employer] [id number] Self [id number] [employer] O [id number] S [id number] [employer] [id number] SP [id number] MVP (pr) Commercial [id number] Self [employer] Commercial [id number] Self [employer] [id number] SP [id number] [employer] O [id number] S [id number] ANSI-Commercial [id number] Conditions, and Diagnoses Code Display Name Description Problem Type Effective Dates Data Source(s) I71.2 Thoracic aortic aneurysm, without ruptur e Thoracic aortic aneurysm, without ruptur Diagnosis 12/27/2020 02:55:20 PM EDT [facility] R00.2 Palpitations Palpitations Diagnosis 12/27/2020 02:55:20 P M EDT [facility] I10 Essential (primary) hypertension Essential (primary) h ypertension Diagnosis 12/27/2020 02:55:20 PM EDT [facility] [id number] Essential hypertension Essential hypertension Problem 01/05/2021 12:00:00 AM EDT [facility] ([facility]) I71.2 Thoracic aortic aneurysm without rupture Thoracic aortic aneurysm without rupture [id number] 12/28/2020 12:00:00 AM EDT [facility] R00.2 Palpitations Palpitations [id number] 12/28/2020 12:00:00 A M EDT [facility] I10 HTN (hypertension) HTN (hypertension) [id number] 12:00:00 AM EDT [facility] [id number] Essential hypertension Essential hypertension Problem 12/11/2020 12:00:00 AM EDT [facility] ([facility], ) I10 [id number] Hypertension, unspecified type Problem 12/02 12:00:00 AM EDT eCW1 ([facility]) I10 [id number] Primary hypertension Problem 12/01/2020 12:0 0:00 AM EDT eCW1 ([facility]) E04.1 [id number] Thyroid nodule Problem 11/30/2020 12:00:00 A M EDT eCW1 ([facility]) K27.9 [id number] PUD (peptic ulcer disease) Problem 12:00:00 AM EDT eCW1 ([facility]) F51.01 [id number] Primary insomnia Problem 11/14/2020 12:00:00 AM EDT eCW1 ([facility]) E78.1 Hypertriglyceridemia Hypertriglyceridemia Problem 08/09/2020 12:00:00 AM EDT eCW1 ([facility]) F41.9 [id number] Anxiety Problem 08/08/2020 12:00:00 AM ED T eCW1 ([facility]) K21.9 [id number] Gastroesophageal reflux disease without e sophagitis Problem 08/08/2020 12:00:00 AM EDT eCW1 ([facility]) Surgeries/Procedures Procedure Description Date Indications Data Source(s) Fine Needle Aspiration Biopsy Inlcd Ultrasound Guidance 01/10/2021 12:00:00 AM EDT [facility] ([facility]) OFFICE OUTPATIENT NEW 60 MINUTES 01/09/2021 12:00:00 A M EDT [facility] ([facility]) ECG ROUTINE ECG W/LEAST 12 LDS W/I&R <td>POCT AMB EKG</td><td>Routine</td><td>12/28/2020 9:16 AM EDT</td><td> Primary hypertension</td><td> </td> 12/28/2020 09:16:00 AM EDT Primary hypertension [facility] Primary hypertension THYROID STIMULATING HORMONE TSH <td>TSH</td><td>Routine</td><td>12/01/2020</td><td></td><td> </td> 12/01/2020 12:00:00 AM EDT [facility] BASIC METABOLIC PANEL CALCIUM TOTAL <td>BASIC METABOLI C PANEL</td><td>Routine</td><td>12/01/2020</td><td></td><td> </td> 12/01/2020 12:00:00 AM EDT [facility] TROPONIN QUANTITATIVE <td>TROPONIN I</td><td>Routine</td><td>11/27/2020</td><td></td><td> </td> 11/27/2020 12:00:00 AM EDT [facility] BLOOD COUNT COMPLETE AUTO&AUTO DIFRNTL WBC COUNT <td>C BC AND DIFFERENTIAL</td><td>Routine</td><td>11/27/2020</td><td></td><td> </td> 11/27/2020 12:00:00 AM EDT [facility] HEPATIC FUNCTION PANEL <td>HEPATIC FUNCTION PANEL</td><td>Routine</td><td>11/27/2020</td><td></td><td> </td> 11/27/2020 12:00:00 AM EDT [facility] BASIC METABOLIC PANEL CALCIUM TOTAL <td>BASIC METABOLI C PANEL</td><td>Routine</td><td>11/27/2020</td><td></td><td> </td> 11/27/2020 12:00:00 AM EDT [facility] Results ID Date Data Source [id number] 01/10/2021 11:35:00 AM EDT [facility] Name Value Range Interpretation Code Description Data Marianna rce(s) Supporting Document(s) SARS-CoV-2 (COVID-19) RNA [Presence] in Respiratory specimen by ARSENIO with probe detection Not Detected [facility] This lab was ordered by [facility] and reported by [employer]. ID Date Data Source [id number] 01/10/2021 04:44:00 AM EDT [facility] ([facility]) Name Value Range Interpretation Code Description Data Marianna rce(s) Supporting Document(s) Microscopic observation [Identifier] in Unspecified specimen by Non- gynecological cytology method Laboratory test result [facility] ([facility]) SPECIMEN: FNA Left thyroid Specimen received in Cytolyt (pink) SPECIMEN ADEQUACY: Satisfactory for evaluation CATEGORIZATION: Benign cellular changes: DESCRIPTIONS: Scattered groups of follicular cells exhibiting hurthle cell changes in a background of rare scattered neitrophils, lymphocytes, and macrophages. COMMENTS: 01/11/202145 Signed COLE KIDD(ASCP) 01/11/2021 0945 (Prelim) Signed ABDON MAE MD 01/11/2021 1013 ID Date Data Source [id number] 01/10/2021 04:43:00 AM EDT [facility] ([facility]) Name Value Range Interpretation Code Description Data Marianna rce(s) Supporting Document(s) Microscopic observation [Identifier] in Unspecified specimen by Non- gynecological cytology method Laboratory test result [facility] ([facility]) SPECIMEN: FNA Right thyroid Specimen received in Cytolyt SPECIMEN ADEQUACY: Satisfactory for evaluation CATEGORIZATION: Benign DESCRIPTIONS: Scattered small groups of follicular cells noted in a background of few scattered lymphocytes and blood elements. COMMENTS: 01/11/2021 - [address](ASCP) 01/11/2021 0949 (Prelim) Signed ABDON MAE MD 01/11/2021 1013 ID Date Data Source [id number] 11/27/2020 03:38:00 PM EDT [facility] Name Value Range Interpretation Code Description Data Marianna rce(s) Supporting Document(s) SARS coronavirus 2 RNA [Presence] in Res piratory specimen by ARSENIO with probe detection NEGATIVE [facility] This lab was ordered by [facility] a nd reported by [employer]. ID Date Data Source LIPASE 11/09/2020 12:00:00 AM EDT eCW1 ([facility]) Name Value Range Interpretation Code Description Data Marianna rce(s) Supporting Document(s) [phone] [id number] LIPASE eCW1 ([facility]) ID Date Data Source Comprehensive Metabolic Profile (CMP) 11/09/2020 12:00:00 AM EDT eCW1 ([facility]) Name Value Range Interpretation Code Description Data Marianna rce(s) Supporting Document(s) 0.82 0.55-1.30 CREATININE FOR GFR eCW1 ([facility]) 8 7-18 BLOOD UREA NITROGEN eCW1 ([facility]) 134 70-100 GLUCOSE, FASTING eCW1 ([facility]) > 60.0 >58 GLOMERULAR FILTRATION RATE eCW 1 ([facility]) 140 136-145 SODIUM LEVEL eCW1 ([facility]) 3.9 3.5-5.1 POTASSIUM SERUM eCW1 ([facility]) 25 21-32 CARBON DIOXIDE LEVEL eCW1 ([facility]) 9.7 8.5-10.1 CALCIUM LEVEL eCW1 ([facility]) 109 98-107 CHLORIDE LEVEL eCW1 ([facility]) 36 7-37 AST/SGOT eCW1 ([facility]) 63 45-117 ALKALINE PHOSPHATASE eCW1 ([facility]) 1.0 0.2-1.0 BILIRUBIN,TOTAL eCW1 ([facility]) 50 12-78 ALT/SGPT eCW1 ([facility]) 3.5 3.2-5.2 ALBUMIN eCW1 ([facility]) 0.9 1.2-2.2 ALBUMIN/GLOBULIN RATIO eCW1 ([facility]) 7.3 6.4-8.2 TOTAL PROTEIN eCW1 ([facility]) ID Date Data Source CBC with Differential 11/09/2020 12:00:00 AM EDT eCW1 ([facility]) Name Value Range Interpretation Code Description Data Marianna rce(s) Supporting Document(s) 6.6 4.0-10.0 WHITE BLOOD COUNT eCW1 ([facility]) 4.85 4.00-5.40 RED BLOOD COUNT eCW1 ([facility]) 42.1 36.0-47.0 HEMATOCRIT eCW1 ([facility]) 86.8 80.0-96.0 MEAN CORPUSCULAR VOLUME e CW1 ([facility]) 14.3 12.0-15.5 HEMOGLOBIN eCW1 ([facility]) 34.0 32.0-36.5 MEAN CORPUSCULAR HGB CONC eCW1 ([facility]) 29.5 27.0-33.0 MEAN CORPUSCULAR HEMOGLOB IN eCW1 ([facility]) 13.1 11.5-14.5 RED CELL DISTRIBUTION WID TH eCW1 ([facility]) 5.0 2.0-8.0 MONO % eCW1 ([facility]) 71.2 36.0-66.0 NEUTROPHILS % eCW1 ([facility]) 21.4 24.0-44.0 LYMPH % eCW1 ([facility]) 222 150-450 PLATELET COUNT, AUTOMATED eCW1 ([facility]) 0.5 0.0-1.0 BASO % eCW1 ([facility]) 4.7 1.5-8.5 NEUTROPHILS # eCW1 ([facility]) 1.4 0.0-3.0 EOS % eCW1 ([facility]) 0.1 0.0-0.5 EOS # eCW1 ([facility]) 1.4 1.5-5.0 LYMPH # eCW1 ([facility]) 0.3 0.0-0.8 MONO # eCW1 ([facility]) 0.0 0.0-0.2 BASO # eCW1 ([facility]) ID Date Data Source AMYLASE 11/09/2020 12:00:00 AM EDT eCW1 ([facility]) Name Value Range Interpretation Code Description Data Marianna rce(s) Supporting Document(s) 54 [phone] AMYLASE eCW1 ([facility]) ID Date Data Source Trichomonas Vaginalis ARSENIO 10/06/2020 12:00:00 AM EDT eCW1 ([facility]) Name Value Range Interpretation Code Description Data Marianna rce(s) Supporting Document(s) Negative Negative TRICHOMONAS VAGINALIS ARSENIO eCW1 ([facility]) ID Date Data Source [facility] US PELVIC NON-OB COMPLETE 10/06/2020 12:00:00 AM EDT eCW 1 ([facility]) Name Value Range Interpretation Code Description Data Marianna rce(s) Supporting Document(s) [facility] US PELVIC NON-OB COMPLETE eCW1 ([facility]) ID Date Data Source CHLAMYDIA & GC DNA AMPLIFICAT 10/06/2020 12:00:00 AM EDT eCW 1 ([facility]) Name Value Range Interpretation Code Description Data Marianna rce(s) Supporting Document(s) Chlamydia trachomatis rRNA [Presence] in Unspecified specimen by Probe and target amplification method NEGATIVE NEGATIVE CHLAMYDIA DNA AMPLIFICATION eCW1 ([facility]) Procedure Social History Code Duration Value Status Description Data Source(s ) Smoking 01/10/2021 12:00:00 AM EDT Never Smoked Cigarettes com pleted Never Smoked Cigarettes [facility] ([facility]) Smoking 01/08/2021 12:00:00 AM EDT Never Smoker completed Never S moker eCW1 ([facility]) Smoking 01/08/2021 12:00:00 AM EDT Never Smoker completed Never S moker eCW1 ([facility]) Smoking 01/08/2021 12:00:00 AM EDT Never Smoker completed Never S moker eCW1 ([facility]) Alcohol intake 12/28/2020 12:00:00 AM EDT Ex-drinker (finding) comp leted Ex- drinker (finding) [facility] Tobacco use and exposure 12/27/2020 12:00:00 AM EDT Never used co mpleted Never used [facility] Smoking 12/27/2020 12:00:00 AM EDT Never smoker completed Never s moker [facility] Smoking 12/18/2020 12:00:00 AM EDT Never Smoker completed Never S moker eCW1 ([facility]) Smoking 12/18/2020 12:00:00 AM EDT Never Smoker completed Never S moker eCW1 ([facility]) Smoking 12/18/2020 12:00:00 AM EDT Never Smoker completed Never S moker eCW1 ([facility]) Smoking 12/18/2020 12:00:00 AM EDT Never Smoker completed Never S moker eCW1 ([facility]) Smoking 12/08/2020 12:00:00 AM EDT Never Smoker completed Never S moker eCW1 ([facility]) Smoking 12/08/2020 12:00:00 AM EDT Never Smoker completed Never S moker eCW1 ([facility]) Smoking 12/08/2020 12:00:00 AM EDT Never Smoker completed Never S moker eCW1 ([facility]) Smoking 12/08/2020 12:00:00 AM EDT Never Smoker completed Never S moker eCW1 ([facility]) Smoking 12/08/2020 12:00:00 AM EDT Never Smoker completed Never S moker eCW1 ([facility]) Smoking 12/08/2020 12:00:00 AM EDT Never Smoker completed Never S moker eCW1 ([facility]) Smoking 12/01/2020 12:00:00 AM EDT Never Smoker completed Never S moker eCW1 ([facility]) Smoking 12/01/2020 12:00:00 AM EDT Never Smoker completed Never S moker eCW1 ([facility]) Smoking 11/23/2020 12:00:00 AM EDT Never Smoker completed Never S moker eCW1 ([facility]) Smoking 11/23/2020 12:00:00 AM EDT Never Smoker completed Never S moker eCW1 ([facility]) Smoking 11/14/2020 12:00:00 AM EDT Never Smoker completed Never S moker eCW1 ([facility]) Smoking 11/14/2020 12:00:00 AM EDT Never Smoker completed Never S moker eCW1 ([facility]) Smoking 11/14/2020 12:00:00 AM EDT Never Smoker completed Never S moker eCW1 ([facility]) Smoking 11/14/2020 12:00:00 AM EDT Never Smoker completed Never S moker eCW1 ([facility]) Smoking 11/14/2020 12:00:00 AM EDT Never Smoker completed Never S moker eCW1 ([facility]) Smoking 11/08/2020 12:00:00 AM EDT Never Smoker completed Never S moker eCW1 ([facility]) Smoking 11/03/2020 12:00:00 AM EDT Never Smoker completed Never S moker eCW1 ([facility]) Smoking 10/06/2020 12:00:00 AM EDT Never Smoker completed Never S moker eCW1 ([facility]) Smoking 10/06/2020 12:00:00 AM EDT Never Smoker completed Never S moker eCW1 ([facility]) Smoking 08/08/2020 12:00:00 AM EDT Never Smoker completed Never S moker eCW1 ([facility]) Smoking 08/08/2020 12:00:00 AM EDT Never Smoker completed Never S moker eCW1 ([facility]) Smoking 07/02/2020 12:00:00 AM EDT Patient has never smoked co mpleted Patient has never smoked [facility] ([facility]) Vital Signs ID Date Data Source UNK Name Value Range Interpretation Code Description Data Source(s) Systolic blood pressure 128 mm[Hg] 128 mm[Hg] M EDENT ([facility]) Diastolic blood pressure 82 mm[Hg] 82 mm[Hg] [facility] ([facility]) Heart rate 96 /min 96 /min [facility] ([facility] ) Body weight 224.38 [lb_av] 224.38 [lb_av] MEDEN T ([facility]) Oxygen saturation in Arterial blood by Pulse oximetry 98 % 98 % [facility] ([facility]) Oxygen saturation in Arterial blood by Pulse oximetry 98 % 98 % [facility] ([facility] ) Systolic blood pressure 124 mm[Hg] 124 mm[Hg] M EDENT ([facility]) Diastolic blood pressure 80 mm[Hg] 80 mm[Hg] [facility] ([facility]) Heart rate 84 /min 84 /min [facility] ([facility]) Body height 67.0 [in_i] 67.0 [in_i] [facility] ([facility]) 5'7" Body weight 225.00 [lb_av] 225.00 [lb_av] MEDEN T ([facility] ) Body mass index (BMI) [Ratio] 35.2 kg/m2 35.2 k g/m2 [facility] ([facility]) Body weight 223.8 [lb_av] 223.8 [lb_av] eCW1 ([facility]) Body height 67 [in_i] 67 [in_i] eCW1 ([facility]) Body mass index (BMI) [Ratio] 35.05 kg/m2 35.05 kg/m2 eCW1 ([facility]) Heart rate 113 /min 113 /min eCW1 ([facility]) Respiratory rate 18 /min 18 /min eCW1 ([facility]) Body temperature 97.8 [degF] 97.8 [degF] eCW1 ( [facility]) Systolic blood pressure 132 mm[Hg] 132 mm[Hg] e CW1 ([facility]) Diastolic blood pressure 84 mm[Hg] 84 mm[Hg] eCW1 ([facility]) Systolic blood pressure 142 mm[Hg] 142 mm[Hg] [facility] Diastolic blood pressure 90 mm[Hg] 90 mm[Hg] [facility] Oxygen saturation in Arterial blood by Pulse oximetry 98 % 98 % [facility] Body mass index (BMI) [Ratio] 35.24 kg/m2 35.24 kg/m2 [facility] Heart rate 82 /min 82 /min [facility] Body height 170.2 cm 170.2 cm [facility] Body weight 102.059 kg 102.059 kg [facility] Body height 67.5 [in_i] 67.5 [in_i] [facility] ([facility], ) 5'7.50" Diastolic blood pressure 84 mm[Hg] 84 mm[Hg] [facility] ([facility]) Body mass index (BMI) [Ratio] 34.7 kg/m2 34.7 k g/m2 [facility]) Charlo body weight 135 [lb_av] 135 [lb_av] [facility] Body weight 102.060 kg 102.060 kg [facility] ([facility]) Body surface area Derived from formula 2.14 m2 2.14 m2 [facility] ([facility]) Systolic blood pressure 162 mm[Hg] 162 mm[Hg] M EDENT ([facility]) Body weight 225.00 [lb_av] 225.00 [lb_av] MEDEN T ([facility]) Body weight 226.2 [lb_av] 226.2 [lb_av] eCW1 ([facility]) Systolic blood pressure 160 mm[Hg] 160 mm[Hg] e CW1 ([facility]) Body height 67 [in_i] 67 [in_i] [facility] ([facility]) Body mass index (BMI) [Ratio] 35.42 kg/m2 35.42 kg/m2 eCW1 ([facility]) Diastolic blood pressure 84 mm[Hg] 84 mm[Hg] eCW1 ([facility]) Body weight 232.8 [lb_av] 232.8 [lb_av] eCW1 ([facility]) Body height 67 [in_i] 67 [in_i] eCW1 ([facility]) Body mass index (BMI) [Ratio] 36.46 kg/m2 36.46 kg/m2 eCW1 ([facility]) Heart rate 115 /min 115 /min eCW1 ([facility]) Respiratory rate 18 /min 18 /min eCW1 ([facility]) Body temperature 97.8 [degF] 97.8 [degF] eCW1 ( [facility]) Systolic blood pressure 146 mm[Hg] 146 mm[Hg] e CW1 ([facility]) Diastolic blood pressure 88 mm[Hg] 88 mm[Hg] eCW1 ([facility]) Body mass index (BMI) [Ratio] 37.74 kg/m2 37.74 kg/m2 eCW1 ([facility]) Heart rate 103 /min 103 /min eCW1 ([facility]) Respiratory rate 18 /min 18 /min eCW1 ([facility]) Body temperature 98.6 [degF] 98.6 [degF] eCW1 ( [facility]) Systolic blood pressure 160 mm[Hg] 160 mm[Hg] e CW1 ([facility]) Diastolic blood pressure 90 mm[Hg] 90 mm[Hg] eCW1 ([facility]) Body weight 241 [lb_av] 241 [lb_av] eCW1 ([facility]) Body height 67 [in_i] 67 [in_i] eCW1 ([facility]) Systolic blood pressure 140 mm[Hg] 140 mm[Hg] e CW1 ([facility]) Body temperature 97.8 [degF] 97.8 [degF] eCW1 ( [facility]) Body weight 240.8 [lb_av] 240.8 [lb_av] eCW1 ([facility]) Body height 67 [in_i] 67 [in_i] eCW1 ([facility]) Body mass index (BMI) [Ratio] 37.71 kg/m2 37.71 kg/m2 eCW1 ([facility]) Heart rate 110 /min 110 /min eCW1 ([facility]) Respiratory rate 18 /min 18 /min eCW1 ([facility]) Diastolic blood pressure 86 mm[Hg] 86 mm[Hg] eCW1 ([facility]) Body weight 247.4 [lb_av] 247.4 [lb_av] eCW1 ([facility]) Body height 67 [in_i] 67 [in_i] eCW1 ([facility]) Body mass index (BMI) [Ratio] 38.74 kg/m2 38.74 kg/m2 eCW1 ([facility]) Heart rate 114 /min 114 /min eCW1 ([facility]) Respiratory rate 18 /min 18 /min eCW1 ([facility]) Body temperature 97.4 [degF] 97.4 [degF] eCW1 ( [facility]) Systolic blood pressure 180 mm[Hg] 180 mm[Hg] e CW1 ([facility]) Diastolic blood pressure 80 mm[Hg] 80 mm[Hg] eCW1 ([facility]) Body weight 251.4 [lb_av] 251.4 [lb_av] eCW1 ([facility]) Body weight 114.03 kg 114.03 kg eCW1 ([facility]) Body height 67 [in_i] 67 [in_i] eCW1 ([facility]) Body mass index (BMI) [Ratio] 39.37 kg/m2 39.37 kg/m2 eCW1 ([facility]) Systolic blood pressure 148 mm[Hg] 148 mm[Hg] e CW1 ([facility]) Diastolic blood pressure 96 mm[Hg] 96 mm[Hg] eCW1 ([facility]) Body weight 256 [lb_av] 256 [lb_av] eCW1 ([facility]) Body height [in_i] eCW1 ([facility]) Body mass index (BMI) [Ratio] 40.09 kg/m2 40.09 kg/m2 eCW1 ([facility]) Heart rate 96 /min 96 /min eCW1 ([facility]) Respiratory rate 18 /min 18 /min eCW1 ([facility]) Body temperature 96.3 [degF] 96.3 [degF] eCW1 ( [facility]) Systolic blood pressure 160 mm[Hg] 160 mm[Hg] e CW1 ([facility]) Diastolic blood pressure 90 mm[Hg] 90 mm[Hg] eCW1 ([facility]) Body weight 259.6 [lb_av] 259.6 [lb_av] eCW1 ([facility]) Body height [in_i] eCW1 ([facility]) Body mass index (BMI) [Ratio] 40.65 kg/m2 40.65 kg/m2 eCW1 ([facility]) Heart rate 114 /min 114 /min eCW1 ([facility]) Respiratory rate 18 /min 18 /min eCW1 ([facility]) Body temperature 97 [degF] 97 [degF] eCW1 ([facility]) Systolic blood pressure 130 mm[Hg] 130 mm[Hg] e CW1 ([facility]) Diastolic blood pressure 82 mm[Hg] 82 mm[Hg] eCW1 ([facility]) Body mass index (BMI) [Ratio] 39.5 kg/m2 39.5 k g/m2 [facility] ([facility]) Systolic blood pressure 192 mm[Hg] 192 mm[Hg] M EDENT ([facility], [facility]) Diastolic blood pressure 131 mm[Hg] 131 mm[Hg] [facility] ([facility] Heart rate 100 /min 100 /min [facility] ([facility]) Respiratory rate 16 /min 16 /min [facility] ( [facility]) Oxygen saturation in Arterial blood by Pulse oximetry 98 % 98 % [facility] ([facility]) Body temperature 98.2 [degF] 98.2 [degF] [facility] ([facility]) Body weight 260.00 [lb_av] 260.00 [lb_av] MEDEN T ([facility], [facility]) Body height 68 [in_i] 68 [in_i] MED[facility] ([facility]) 5'8" Patient Treatment Plan of Care Planned Activity Planned Date Details Description Data Source (s) Amlodipine 10 MG Oral Tablet 12/27/2020 12:00:00 AM EDT [facility] valsartan 320 MG Oral Tablet 12/27/2020 12:00:00 AM EDT [facility] Lata 0.35 MG 12/18/2020 12:00:00 AM EDT eC ([facility]) Lata 0.35 MG 12/18/2020 12:00:00 AM EDT eCW ([facility]) Lata 0.35 MG 12/18/2020 12:00:00 AM EDT eCW ([facility]) Lata 0.35 MG 12/18/2020 12:00:00 AM EDT eC ([facility]) Citalopram 10 MG Oral Tablet 12/15/2020 12:00:00 AM EDT [facility] Amlodipine 2.5 MG Oral Tablet 12/15/2020 12:00:00 AM EDT [facility] Omeprazole 20 MG Delayed Release Oral Capsule 12/01/2020 12:00:00 A M EDT [facility] valsartan 320 MG Oral Tablet 11/27/2020 12:00:00 AM EDT [facility] Famotidine 40 MG Oral Tablet 11/15/2020 12:00:00 AM EDT [facility] Zolpidem tartrate 5 MG Oral Tablet [Ambien] 11/14/2020 12:00:00 AM EDT eCW1 ([facility]) Zolpidem tartrate 5 MG Oral Tablet [Ambien] 11/14/2020 12:00:00 AM EDT eCW1 ([facility]) Zolpidem tartrate 5 MG Oral Tablet [Ambien] 11/14/2020 12:00:00 AM EDT eCW1 ([facility]) Zolpidem tartrate 5 MG Oral Tablet [Ambien] 11/14/2020 12:00:00 AM EDT eCW1 ([facility]) Zolpidem tartrate 5 MG Oral Tablet [Ambien] 11/14/2020 12:00:00 AM EDT eCW1 ([facility]) Omeprazole 20 MG Delayed Release Oral Capsule 11/08/2020 12:00:00 A M EDT eCW1 ([facility]) Omeprazole 20 MG Delayed Release Oral Capsule 11/08/2020 12:00:00 A M EDT eCW1 ([facility]) Omeprazole 20 MG Delayed Release Oral Capsule 11/08/2020 12:00:00 A M EDT eCW1 ([facility]) Omeprazole 20 MG Delayed Release Oral Capsule 11/08/2020 12:00:00 A M EDT eCW1 ([facility]) Omeprazole 20 MG Delayed Release Oral Capsule 11/08/2020 12:00:00 A M EDT eCW1 ([facility]) Omeprazole 20 MG Delayed Release Oral Capsule 11/08/2020 12:00:00 A M EDT eCW1 ([facility]) Omeprazole 40 MG Delayed Release Oral Capsule 11/08/2020 12:00:00 A M EDT eCW1 ([facility]) Omeprazole 40 MG Delayed Release Oral Capsule 11/08/2020 12:00:00 A M EDT eCW1 ([facility]) Omeprazole 40 MG Delayed Release Oral Capsule 11/08/2020 12:00:00 A M EDT eCW1 ([facility]) Omeprazole 40 MG Delayed Release Oral Capsule 11/08/2020 12:00:00 A M EDT eCW1 ([facility]) Omeprazole 40 MG Delayed Release Oral Capsule 11/08/2020 12:00:00 A M EDT eCW1 ([facility]) Sucralfate 1000 MG Oral Tablet [Carafate] 11/08/2020 12:00:00 AM ED T eCW1 ([facility]) Omeprazole 40 MG Delayed Release Oral Capsule 11/08/2020 12:00:00 A M EDT eCW1 ([facility]) Omeprazole 20 MG Delayed Release Oral Capsule 11/08/2020 12:00:00 A M EDT eCW1 ([facility]) Omeprazole 20 MG Delayed Release Oral Capsule 11/08/2020 12:00:00 A M EDT eCW1 ([facility]) Omeprazole 20 MG Delayed Release Oral Capsule 11/08/2020 12:00:00 A M EDT eCW1 ([facility]) Omeprazole 20 MG Delayed Release Oral Capsule 11/08/2020 12:00:00 A M EDT eCW1 ([facility]) Microgestin 24 Fe 1-20 MG-MCG 11/03/2020 12:00:00 AM EDT eCW1 ([facility]) Famotidine 40 MG Oral Tablet 08/08/2020 12:00:00 AM EDT eCW1 ([facility]) Famotidine 40 MG Oral Tablet 08/08/2020 12:00:00 AM EDT eCW1 ([facility]) Famotidine 40 MG Oral Tablet 08/08/2020 12:00:00 AM EDT eCW1 ([facility]) Famotidine 40 MG Oral Tablet 08/08/2020 12:00:00 AM EDT eCW1 ([facility]) Famotidine 40 MG Oral Tablet 08/08/2020 12:00:00 AM EDT eCW1 ([facility]) Famotidine 40 MG Oral Tablet 08/08/2020 12:00:00 AM EDT eCW1 ([facility]) Famotidine 40 MG Oral Tablet 08/08/2020 12:00:00 AM EDT eCW1 ([facility]) Famotidine 40 MG Oral Tablet 08/08/2020 12:00:00 AM EDT eCW1 ([facility]) Famotidine 40 MG Oral Tablet 08/08/2020 12:00:00 AM EDT eCW1 ([facility]) Famotidine 40 MG Oral Tablet 08/08/2020 12:00:00 AM EDT eCW1 ([facility]) Famotidine 40 MG Oral Tablet 08/08/2020 12:00:00 AM EDT eCW1 ([facility]) Famotidine 40 MG Oral Tablet 08/08/2020 12:00:00 AM EDT eCW1 ([facility]) Famotidine 40 MG Oral Tablet 08/08/2020 12:00:00 AM EDT eCW1 ([facility]) Famotidine 40 MG Oral Tablet 08/08/2020 12:00:00 AM EDT eCW1 ([facility]) Famotidine 40 MG Oral Tablet 08/08/2020 12:00:00 AM EDT eCW1 ([facility]) Famotidine 40 MG Oral Tablet 08/08/2020 12:00:00 AM EDT eCW1 ([facility]) Famotidine 40 MG Oral Tablet 08/08/2020 12:00:00 AM EDT eCW1 ([facility])
--- OUTSIDE RECORDS SUMMARY | 2021-01-15 11:38 | CCD ---
Author [facility] Address Unknown Phone Unavailable Care Team Providers Care Band Machine Operator Name Role Phone Laura Pablo Unavailable PROBLEMS Type Condition ICD9-CM Code [id number] Code Onset Dates Condition S tatus W/U Status Risk SNOMED Code Notes Problem HTN (hypertension) I10 Active confirmed 3 3645660 Problem PUD (peptic ulcer disease) K27.9 Active confirmed 96814467 Problem Primary insomnia F51.01 Active confirmed 397 2004 Problem Hypophosphatemia E83.39 Active confirmed 499 6001 Problem Gastroesophageal reflux disease without esophagitis K21.9 Active confirmed 959027988 Problem Hypertriglyceridemia E78.1 Active confirmed 399673340 Problem Anxiety F41.9 Active confirmed 06307918 ALLERGIES No Known Allergies ENCOUNTERS from 1975 to 2020-11-20 Encounter Location Date Provider Diagnosis [address] [place] [address] Oct, Laura Pablo HTN (hypertension) I10 and Epigastric pa in R10.13 IMMUNIZATIONS Vaccine Route Administration Date Status COVID-19 [...] Education Language: Question Answer Notes Languages spoken: Thai Domestic Violence: Question Answer Notes Status: Drug and Alcohol Question Answer Notes Total Score: 0 Interpretation: No problems reported BMI Care Goal Follow-Up Question Answer Notes Above Normal BMI Follow-Up Dietary management educatio n, guidance, and counseling Tobacco Use: Question Answer Notes Are you a: never smoker never smoker REASON FOR REFERRAL from 1975 to 2020-11-20 Reason Epigastric pain with increas ed belching, nausea, dark stool - concern for ulcer - starting treatment - will need EGD Diagnosis 1 Epigastric pain (R10.13) Referral Organization [facility] Arsenio Referring Provider First Name Laura Referring Provider Last Name Bev Referring Provider Specialty Family Medicine Referred Provider Dallin Godfrey Referral Priority Routine General Notes [facility],11/09/2020 2:09:57 PM [facility] 8[facility]12[facility]51 AM > faxed again VITAL SIGNS Weight 247.4 lbs Oct, Height 67 in Oct, BMI 38.74 kg/m2 Oct, Heart Rate 114 /min Oct, Respiratory Rate 18 /min Oct, Temperature 97.4 degrees Fahrenheit Oct, Oximetry 97 Oct, Blood pressure systolic 180 mm Hg Oct, Blood pressure diastolic 80 mm Hg Oct, MEDICATIONS Medication SIG (Take, [...] Week off Active PROCEDURES No Information RESULTS Component Value Reference Range AMYLASE Reviewed date:11/09/2020 16:15:26 Interpretation: Performing Lab:[facility] [address] [facility] [address] , ,[place] [address] AMYLASE 54 25-115 CBC with Differential Reviewed date:11/09/2020 14:00:47 Interpretation: Performing Lab:[facility] [address] [facility] [address] , ,[facility] WHITE BLOOD COUNT 6.6 4.0-10.0 RED BLOOD COUNT 4.85 4.00-5.40 HEMOGLOBIN 14.3 12.0-15.5 HEMATOCRIT 42.1 36.0-47.0 MEAN CORPUSCULAR VOLUME 86.8 80.0-96.0 MEAN CORPUSCULAR HEMOGLOBIN 29.5 27.0-33.0 MEAN CORPUSCULAR HGB CONC 34.0 32.0-36.5 RED CELL DISTRIBUTION WIDTH 13.1 11.5-14.5 PLATELET COUNT, AUTOMATED 222 150-450 NEUTROPHILS % 71.2 36.0-66.0 LYMPH % 21.4 24.0-44.0 MONO % 5.0 2.0-8.0 EOS % 1.4 0.0-3.0 BASO % 0.5 0.0-1.0 NEUTROPHILS # 4.7 1.5-8.5 LYMPH # 1.4 1.5-5.0 MONO # 0.3 0.0-0.8 EOS # 0.1 0.0-0.5 BASO # 0.0 0.0-0.2 Comprehensive Metabolic Profile (CMP) Reviewed date:11/09/2020 16:16:16 Interpretation: Performing Lab:[facility] [address] [facility] [address] , ,[facility] GLUCOSE, FASTING 134 70-100 BLOOD UREA NITROGEN 8 7-18 CREATININE FOR GFR 0.82 0.55-1.30 GLOMERULAR FILTRATION RATE > 60.0 >58 SODIUM LEVEL 140 136-145 POTASSIUM SERUM 3.9 3.5-5.1 CHLORIDE LEVEL 109 98-107 CARBON DIOXIDE LEVEL 25 21-32 CALCIUM LEVEL 9.7 8.5-10.1 AST/SGOT 36 7-37 ALT/SGPT 50 12-78 ALKALINE PHOSPHATASE 63 45-117 BILIRUBIN,TOTAL 1.0 0.2-1.0 TOTAL PROTEIN 7.3 6.4-8.2 ALBUMIN 3.5 3.2-5.2 ALBUMIN/GLOBULIN RATIO 0.9 1.2-2.2 LIPASE Reviewed date:11/09/2020 16:15:22 Interpretation: Performing Lab:[facility] [address] [facility] [address] , ,[place] [address] LIPASE 97 73-393 REASON FOR VISIT follow up acid reflux MEDICAL (GENERAL) HISTORY Type Description Date Medical [...] Treatment Notes Treatm ent Clinical Notes Oct, HTN (hypertension) (ICD-10 - I10) Oct, Epigastric pain (ICD-10 - R10.13) PLAN OF TREATMENT Medication Medication Name Sig [...] orally twice a day for 30 days Referrals Referral Date Details Epigastric pain with increas ed belching, nausea, dark stool - concern for ulcer - starting treatment - will need EGD, Dallin Godfrey Next Appt Details 2 Weeks Reason: Provider Name:Laura Pablo, 2020-11 04:15:00 PM, [address], , [place], [address], Provider Name:Masood Pressley Kevin, 2020-12-18 03:30:00 PM, [address] [facility], , [place], [address], Insurance Providers Payer Name Payer Address Payer Phone Insured Name Patient Relati onship to Insured Coverage Start Date Coverage End Date [facility] [address] [facility] [address] [phone] EDUARD CARLISLE self
[2021-01-15] MEDS ORDERED: propofoL 200 MG/20 ML VIAL As Ordered ONE ×2 (12:09→13:04)
[2021-01-15] MEDS ORDERED: fentaNYL 100 MCG/2 ML INJECTION (J3010) As Ordered ONE (12:09)
[2021-01-15] MEDS ORDERED: LIDOCAINE 2% 100MG/5ML SDV (FOR ANES.) As Ordered ONE (12:09)
--- NOTE | 2021-01-15 13:32 | ROOR ---
Patient Name: Jennifer Salazar Procedure Date: 01/15/2021 12:33 PM Date of : 1975 Age: 45 Room: [facility] Gender: Female Note Status: Finalized Procedure: Upper GI endoscopy Indications: Dyspepsia, Dysphagia, Weight loss Providers: David Aquino MD Referring MD: DIAN Smith Requesting Provider: Medicines: Monitored Anesthesia Care Complications: No immediate complications. Procedure: Pre-Anesthesia Assessment: - Prior to the procedure, a History and Physical was performed, and patient medications and allergies were reviewed. The patient is competent. The risks and benefits of the procedure and the sedation options and risks were discussed with the patient. All questions were answered and informed consent was obtained. Patient identification and proposed procedure were verified by the physician, the nurse and the anesthesiologist in the procedure room. Mental Status Examination: alert and oriented. Airway Examination: normal oropharyngeal airway and neck mobility. Respiratory Examination: clear to auscultation. CV Examination: normal. Prophylactic Antibiotics: The patient does not require prophylactic antibiotics. Prior Anticoagulants: The patient has taken no previous anticoagulant or antiplatelet agents. ASA Grade Assessment: II - A patient with mild systemic disease. After reviewing the risks and benefits, the patient was deemed in satisfactory condition to undergo the procedure. The anesthesia plan was to use monitored anesthesia care (MAC). Immediately prior to administration of medications, the patient was re-assessed for adequacy to receive sedatives. The heart rate, respiratory rate, oxygen saturations, blood pressure, adequacy of pulmonary ventilation, and response to care were monitored throughout the procedure. The physical status of the patient was re-assessed after the procedure. The Endoscope was introduced through the mouth, and advanced to the second part of duodenum. The upper GI endoscopy was accomplished without difficulty. The patient tolerated the procedure well. Findings: The examined esophagus was normal. The Z-line was regular and was found 40 cm from the incisors. Scattered mild inflammation characterized by erythema and granularity was found in the gastric antrum. Biopsies were taken with a cold forceps for Helicobacter pylori testing. Verification of patient identification for the specimen was done by the physician and nurse using the patient's name, date and medical record number. The duodenal bulb, second portion of the duodenum, area of the papilla and third portion of the duodenum were normal. Biopsies for histology were taken with a cold forceps for evaluation of celiac disease. Impression: - Normal esophagus. - Z-line regular, 40 cm from the incisors. - Gastritis. Biopsied. - Normal duodenal bulb, second portion of the duodenum, area of the papilla and third portion of the duodenum. Biopsied. Recommendation: - Patient has a contact number available for emergencies. The signs and symptoms of potential delayed complications were discussed with the patient. Return to normal activities tomorrow. Written discharge instructions were provided to the patient. - High fiber diet. - Continue present medications. - Await pathology results. - Follow an antireflux regimen. - Telephone GI clinic for pathology results in 2 weeks. - Return to GI clinic if persistent symptoms or new symptoms. - Return to primary care physician. Procedure Code(s): --- Professional --- 44018, Esophagogastroduodenoscopy, flexible, transoral; with biopsy, single or multiple Diagnosis Code(s): --- Professional --- K29.70, Gastritis, unspecified, without bleeding R10.13, Epigastric pain R13.10, Dysphagia, unspecified R63.4, Abnormal weight loss CPT copyright 2019 [employer]. All rights reserved. The codes documented in this report are preliminary and upon referral coordinator review may be revised to meet current compliance requirements. David Aquino MD David Aquino MD 01/15/2021 1:31:23 PM Electronically signed by David Aquino MD Number of Addenda: 0 Note Initiated On: 01/15/2021 12:33 PM Estimated Blood Loss: Estimated blood loss was minimal.
[2021-01-15 13:35] VITALS: BP 172/88
--- NOTE | 2021-01-15 13:54 | ROOR ---
Patient Name: Jennifer Salazar Procedure Date: 01/15/2021 12:35 PM Date of : 1975 Age: 45 Room: [facility] Gender: Female Note Status: Finalized Procedure: Colonoscopy Indications: Weight loss Providers: David Aquino MD Referring MD: DIAN Smith Requesting Provider: Medicines: Monitored Anesthesia Care Complications: No immediate complications. Procedure: Pre-Anesthesia Assessment: - Prior to the procedure, a History and Physical was performed, and patient medications and allergies were reviewed. The patient is competent. The risks and benefits of the procedure and the sedation options and risks were discussed with the patient. All questions were answered and informed consent was obtained. Patient identification and proposed procedure were verified by the physician, the nurse and the anesthesiologist in the procedure room. Mental Status Examination: alert and oriented. Airway Examination: normal oropharyngeal airway and neck mobility. Respiratory Examination: clear to auscultation. CV Examination: normal. Prophylactic Antibiotics: The patient does not require prophylactic antibiotics. Prior Anticoagulants: The patient has taken no previous anticoagulant or antiplatelet agents. ASA Grade Assessment: II - A patient with mild systemic disease. After reviewing the risks and benefits, the patient was deemed in satisfactory condition to undergo the procedure. The anesthesia plan was to use monitored anesthesia care (MAC). Immediately prior to administration of medications, the patient was re-assessed for adequacy to receive sedatives. The heart rate, respiratory rate, oxygen saturations, blood pressure, adequacy of pulmonary ventilation, and response to care were monitored throughout the procedure. The physical status of the patient was re-assessed after the procedure. The Colonoscope was introduced through the anus and advanced to the terminal ileum, with identification of the appendiceal orifice and IC valve. The colonoscopy was performed without difficulty. The patient tolerated the procedure well. The quality of the bowel preparation was good. The terminal ileum, ileocecal valve, appendiceal orifice, and rectum were photographed. Scope insertion time was 2 minutes. Scope withdrawal time was 8 minutes. The total duration of the procedure was 12 minutes. Findings: The perianal and digital rectal examinations were normal. The terminal ileum appeared normal. Two sessile polyps were found in the rectum. The polyps were 3 to 4 mm in size. These polyps were removed with a cold biopsy forceps. Resection and retrieval were complete. Verification of patient identification for the specimen was done by the physician and nurse using the patient's name, date and medical record number. Estimated blood loss was minimal. Non-bleeding external and internal hemorrhoids were found during retroflexion. The hemorrhoids were small. No other significant abnormalities were identified in a careful examination of the remainder of the colon. Impression: - The examined portion of the ileum was normal. - Two 3 to 4 mm polyps in the rectum, removed with a cold biopsy forceps. Resected and retrieved. - Non-bleeding external and internal hemorrhoids. Recommendation: - Patient has a contact number available for emergencies. The signs and symptoms of potential delayed complications were discussed with the patient. Return to normal activities tomorrow. Written discharge instructions were provided to the patient. - High fiber diet. - Continue present medications. - Await pathology results. - Repeat colonoscopy in 10 years for surveillance based on pathology results. - Return to GI clinic if persistent symptoms or new symptoms. - Return to primary care physician. Procedure Code(s): --- Professional --- 72892, Colonoscopy, flexible; with biopsy, single or multiple Diagnosis Code(s): --- Professional --- K64.8, Other hemorrhoids K62.1, Rectal polyp R63.4, Abnormal weight loss CPT copyright 2019 [employer]. All rights reserved. The codes documented in this report are preliminary and upon whirley operator review may be revised to meet current compliance requirements. David Aquino MD David Aquino MD 01/15/2021 1:54:12 PM Electronically signed by David Aquino MD Number of Addenda: 0 Note Initiated On: 01/15/2021 12:35 PM Estimated Blood Loss: Estimated blood loss was minimal.
== END 2021-01-15 14:12 | disposition home or self-care (01) ==
LOC: M OPP 11:32
PROVIDERS: ATTEND Internal Medicine Gastroenterology
DX: K63.5 Polyp of colon (principal); K64.8 Other hemorrhoids; R63.4 Abnormal weight loss; K29.70 Gastritis, unspecified, without bleeding; R10.13 Epigastric pain; R13.10 Dysphagia, unspecified; Z79.3 Long term (current) use of hormonal contraceptives; Z79.899 Other long term (current) drug therapy; Z80.0 Family history of malignant neoplasm of digestive organs
CPT/HCPCS: 43239; 45380; 88305; J3010

== ENCOUNTER → 2021-01-19 | Outpatient (REF) | payer OTHER ==
[~2021-01-19] MED LIST changes: -NS 1,000 ML IV ONE
[2021-01-19 19:14] LABS: BLOOD UREA NITROGEN 12 MG/DL (7-18); CALCIUM LEVEL 9.4 MG/DL (8.5-10.1); CARBON DIOXIDE LEVEL 32 MEQ/L (21-32); CHLORIDE LEVEL 103 MEQ/L (98-107); GLOMERULAR FILTRATION RATE > 60.0 (>58); GLUCOSE, FASTING 109 MG/DL (70-100); POTASSIUM SERUM 3.3 MEQ/L (3.5-5.1); SODIUM LEVEL 140 MEQ/L (136-145)
== END ==
LOC: M LABDRWAD 17:15
PROVIDERS: ATTEND Physician Assistant
DX: I10 Essential (primary) hypertension (principal)

== ENCOUNTER → 2021-01-19 | Outpatient (REF) | payer OTHER ==
[2021-01-19 17:59] LABS: TOTAL 25(OH) VITAMIN D 62.2 NG/ML (30.0-100.0)
[2021-01-22 18:17] LABS: Lyme Disease IgG/IgM Antibodie <0.91 ISR (0.00-0.90); Lyme Disease IgM Ab Quantitati <0.80 index (0.00-0.79)
== END ==
LOC: M SFHCADAM 14:34
PROVIDERS: ATTEND Physician Assistant
DX: R51.9 Headache, unspecified (principal); K21.9 Gastro-esophageal reflux disease without esophagitis

== ENCOUNTER 2021-01-31 11:57 | Outpatient (CLI) | payer OTHER ==
[~2021-01-31] VITALS: Ht 170.2 cm; Wt 98.0 kg
[~2021-01-31 11:57] MED LIST changes: +ALBUTEROL 90 MCG/ACT 8GM HFA INHALER INH PRN; +ALBUTEROL SULFATE 2.5 MG/0.5 ML INH NEB SOLN INH PRN; +CASIRIVIMAB/IMDEVIMAB 1,200 MG in NS 250 ML IV ONE; +EPINEPHrine INJ 1 MG/ML 1ML AMP IM PRN; +NS 1,000 ML IV SCH; +diphenhydrAMINE 50MG/ML VIAL (J1200) IV PRN; +methylPREDNISolone 125MG 2ML VIAL IV PRN
[2021-01-31 12:33] VITALS: BP 140/79
[2021-01-31 13:03] VITALS: BP_SYST 128; BP_SYST 149; BP_DIAS 72; BP_DIAS 83
[2021-01-31 13:33] VITALS: BP 140/65
[2021-01-31 14:33] VITALS: BP 135/68
== END 2021-01-31 14:33 | disposition home or self-care (01) ==
LOC: M OPCLI4PR 11:57
PROVIDERS: ATTEND Physician Assistant Medical
DX: U07.1 COVID-19 (principal); Z88.8 Allergy status to other drugs, medicaments and biological substances

== ENCOUNTER → 2021-03-19 | Outpatient (REF) | payer OTHER ==
[~2021-03-19] MED LIST changes: -ALBUTEROL 90 MCG/ACT 8GM HFA INHALER INH PRN; -ALBUTEROL SULFATE 2.5 MG/0.5 ML INH NEB SOLN INH PRN; -CASIRIVIMAB/IMDEVIMAB 1,200 MG in NS 250 ML IV ONE; -EPINEPHrine INJ 1 MG/ML 1ML AMP IM PRN; -NS 1,000 ML IV SCH; -diphenhydrAMINE 50MG/ML VIAL (J1200) IV PRN; -methylPREDNISolone 125MG 2ML VIAL IV PRN
[2021-03-19 17:37] LABS: THYROID STIMULATING HORMONE 1.47 uIU/ML (0.358-3.740)
[2021-03-19 18:10] LABS: FOLLICLE STIMULATING HORMONE 4.7 mIU/mL; PROGESTERONE 0.21 NG/ML; PROLACTIN 11.1 NG/ML
== END ==
LOC: M LABDRWAD 16:32
PROVIDERS: ATTEND Specialist
DX: N92.6 Irregular menstruation, unspecified (principal)

== ENCOUNTER → 2021-05-14 | Outpatient (CLI) | payer OTHER ==
[~2021-05-14] MED LIST changes: -CITA10TA5 PO; +CITA10TA7 PO; +OMEP-173 PO; -OMEP-218 PO; -OMEP-221 PO; +OMEP40CA5 PO
== END ==
LOC: M WUC 11:15
PROVIDERS: ATTEND Physician Assistant
DX: M25.572 Pain in left ankle and joints of left foot (principal); M79.89 Other specified soft tissue disorders

== ENCOUNTER → 2021-12-18 | Outpatient (CLI) | payer OTHER ==
[~2021-12-18] MED LIST changes: -BENI1TAB3 PO; -MICR1TAB18; +NORE1TAB94; +OLME20TA55 PO
[2021-12-18 07:13] LABS: HEMATOCRIT 35.3 % (36.0-47.0); HEMOGLOBIN 12.2 g/dl (12.0-15.5); MEAN CORPUSCULAR HEMOGLOBIN 30.4 pg (27.0-33.0); MEAN CORPUSCULAR HGB CONC 34.6 g/dl (32.0-36.5); PLATELET COUNT, AUTOMATED 160 10^3/uL (150-450); RED BLOOD COUNT 4.01 10^6/uL (4.00-5.40); WHITE BLOOD COUNT 6.7 10^3/uL (4.0-10.0)
[2021-12-18 07:53] LABS: ALBUMIN 3.3 GM/DL (3.2-5.2); ALT/SGPT 54 U/L (12-78); BILIRUBIN,TOTAL 0.9 MG/DL (0.2-1.0); BLOOD UREA NITROGEN 10 MG/DL (7-18); CALCIUM LEVEL 9.4 MG/DL (8.5-10.1); CARBON DIOXIDE LEVEL 30 MEQ/L (21-32); CHLORIDE LEVEL 104 MEQ/L (98-107); CHOLESTEROL LEVEL 163 MG/DL (<200); CHOLESTEROL RISK RATIO 4.289 (<5); CREATININE FOR GFR 0.68 MG/DL (0.55-1.30); GLOMERULAR FILTRATION RATE > 60.0 (>58); GLUCOSE, FASTING 147 MG/DL (70-100); HDL CHOLESTEROL 38 MG/DL (>40); LDL CHOLESTEROL 82 MG/DL (<100); NON-HDL-C 125 MG/DL; POTASSIUM SERUM 3.4 MEQ/L (3.5-5.1); SODIUM LEVEL 139 MEQ/L (136-145); TOTAL PROTEIN 6.7 GM/DL (6.4-8.2); TRIGLYCERIDES LEVEL 213 MG/DL (<150)
[2021-12-19 17:33] LABS: HEMOGLOBIN A1c 6.9 %
== END ==
LOC: M LAB 06:08
PROVIDERS: ATTEND Physician Assistant
DX: I10 Essential (primary) hypertension (principal); K21.9 Gastro-esophageal reflux disease without esophagitis; F41.9 Anxiety disorder, unspecified; E78.1 Pure hyperglyceridemia

== ENCOUNTER → 2022-01-11 | Outpatient (REF) | payer OTHER | LOC: M SFHCWAGY 09:47 | PROVIDERS: ATTEND Advanced Practice Midwife | DX: Z12.4 Encounter for screening for malignant neoplasm of cervix (principal) | CPT/HCPCS: 87624; G0123 ==

== ENCOUNTER → 2022-06-13 | Outpatient (REF) | payer OTHER | LOC: M WUC 19:58 | PROVIDERS: ATTEND Student in an Organized Health Care Education/Training Program | DX: R30.0 Dysuria (principal) ==

== ENCOUNTER → 2022-08-15 | Outpatient (REF) | payer OTHER ==
[2022-08-15 14:12] LABS: BLOOD UREA NITROGEN 14 MG/DL (9-23); CARBON DIOXIDE LEVEL 28 MMOL/L (20-31); CHLORIDE LEVEL 101 MMOL/L (98-107); CREATININE FOR GFR 0.64 MG/DL (0.55-1.30); GLOMERULAR FILTRATION RATE > 60.0 (>58); GLUCOSE, FASTING 230 MG/DL (60-100); POTASSIUM SERUM 3.6 MMOL/L (3.5-5.1); SODIUM LEVEL 138 MMOL/L (136-145)
[2022-08-15 14:20] LABS: HEMOGLOBIN A1c 8.6 % (4.0-6.0)
== END ==
LOC: M SFHCPLAZ 13:06 → M LABDRWAD 13:06
PROVIDERS: ATTEND Physician Assistant
DX: R73.09 Other abnormal glucose (principal)

== ENCOUNTER → 2022-12-31 | Outpatient (CLI) | payer OTHER ==
[2022-12-31 11:49] LABS: HEMOGLOBIN A1c 4.8 % (4.0-6.0)
[2022-12-31 12:01] LABS: BLOOD UREA NITROGEN 13 MG/DL (9-23); CALCIUM LEVEL 8.9 MG/DL (8.5-10.1); CARBON DIOXIDE LEVEL 29 MMOL/L (20-31); CHLORIDE LEVEL 103 MMOL/L (98-107); CREATININE FOR GFR 0.74 MG/DL (0.55-1.30); GLOMERULAR FILTRATION RATE > 60.0 (>58); GLUCOSE, FASTING 90 MG/DL (60-100); POTASSIUM SERUM 4.2 MMOL/L (3.5-5.1); SODIUM LEVEL 139 MMOL/L (136-145)
== END ==
LOC: M WUC 08:25
PROVIDERS: ATTEND Physician Assistant
DX: E11.9 Type 2 diabetes mellitus without complications (principal)

== ENCOUNTER → 2023-01-21 | Outpatient (CLI) | payer OTHER | LOC: M ADAMS 12:09 | PROVIDERS: ATTEND Physician Assistant | DX: J40 Bronchitis, not specified as acute or chronic (principal) ==

== ENCOUNTER 2023-02-20 16:26 | Emergency (ER) | payer OTHER ==
[~2023-02-20] VITALS: Ht 170.2 cm; Wt 109.0 kg
[~2023-02-20 16:26] MED LIST changes: -OLME20TA2 PO; +OLME20TA50 PO
[2023-02-20 16:28] VITALS: TEMP 98
[2023-02-20] MEDS ORDERED: PRED20TA (16:38)
[2023-02-20] MEDS ORDERED: AMOX875T2 (16:38)
[2023-02-20] MEDS ORDERED: FLUC150T9 (16:38)
[2023-02-20] MEDS ORDERED: MOME17SP NS (19:14)
[2023-02-20 19:27] VITALS: BP 159/87; O2SAT 98
== END 2023-02-20 19:28 | disposition home or self-care (01) ==
LOC: M ED 16:26
DX: J01.90 Acute sinusitis, unspecified (principal); H65.03 Acute serous otitis media, bilateral; Z88.8 Allergy status to other drugs, medicaments and biological substances; Z79.2 Long term (current) use of antibiotics; Z79.811 Long term (current) use of aromatase inhibitors; Z79.83 Long term (current) use of bisphosphonates; Z79.52 Long term (current) use of systemic steroids; Z79.899 Other long term (current) drug therapy

== ENCOUNTER → 2023-04-18 | Outpatient (REF) | payer OTHER ==
[~2023-04-18] MED LIST changes: +AMOX875T2; +FLUC150T9; +MOME17SP NS; +PRED20TA
== END ==
LOC: M SFHCWAGY 10:53
PROVIDERS: ATTEND Advanced Practice Midwife
DX: Z12.4 Encounter for screening for malignant neoplasm of cervix (principal)
CPT/HCPCS: 87624; G0123

== ENCOUNTER → 2023-04-29 | Outpatient (CLI) | payer OTHER | LOC: M PLAIMG 11:18 | PROVIDERS: ATTEND Physician Assistant Medical | DX: J32.8 Other chronic sinusitis (principal) ==

== ENCOUNTER → 2023-06-19 | Outpatient (REF) | payer OTHER ==
[2023-06-19 14:33] LABS: BLOOD UREA NITROGEN 13 MG/DL (9-23); CALCIUM LEVEL 9.5 MG/DL (8.5-10.1); CARBON DIOXIDE LEVEL 26 MMOL/L (20-31); CHLORIDE LEVEL 105 MMOL/L (98-107); CREATININE FOR GFR 0.67 MG/DL (0.55-1.30); FREE T4 1.05 NG/DL (0.89-1.76); GLOMERULAR FILTRATION RATE > 60.0 (>58); GLUCOSE, FASTING 80 MG/DL (60-100); POTASSIUM SERUM 4.2 MMOL/L (3.5-5.1); SODIUM LEVEL 138 MMOL/L (136-145); THYROID STIMULATING HORMONE 1.331 uIU/ML (0.55-4.78)
[2023-06-19 14:58] LABS: HEMOGLOBIN A1c 5.7 % (4.0-6.0)
== END ==
LOC: M SFHCADAM 10:41
PROVIDERS: ATTEND Physician Assistant
DX: E11.9 Type 2 diabetes mellitus without complications (principal); E66.01 Morbid (severe) obesity due to excess calories; I10 Essential (primary) hypertension

== ENCOUNTER → 2023-07-11 | Outpatient (REF) | payer OTHER ==
[2023-07-11 15:40] LABS: HEMATOCRIT 38.7 % (36.0-47.0); HEMOGLOBIN 13.7 g/dl (12.0-15.5); MEAN CORPUSCULAR HEMOGLOBIN 31.8 pg (27.0-33.0); MEAN CORPUSCULAR HGB CONC 35.4 g/dl (32.0-36.5); MEAN CORPUSCULAR VOLUME 89.8 fl (80.0-96.0); PLATELET COUNT, AUTOMATED 216 10^3/uL (150-450); RED BLOOD COUNT 4.31 10^6/uL (4.00-5.40); WHITE BLOOD COUNT 9.2 10^3/uL (4.0-10.0)
[2023-07-11 15:44] LABS: ALBUMIN 3.8 G/DL (3.2-5.2); ALKALINE PHOSPHATASE 97 U/L (46-116); ALT/SGPT 21 U/L (7.0-40); AST/SGOT 14 U/L (<34); BILIRUBIN,TOTAL 1.7 MG/DL (0.3-1.2); BLOOD UREA NITROGEN 16 MG/DL (9-23); CALCIUM LEVEL 9.7 MG/DL (8.5-10.1); CARBON DIOXIDE LEVEL 25 MMOL/L (20-31); CHLORIDE LEVEL 105 MMOL/L (98-107); CHOLESTEROL LEVEL 200 MG/DL (<200); CREATININE FOR GFR 0.72 MG/DL (0.55-1.30); GLOMERULAR FILTRATION RATE > 60.0 (>58); GLUCOSE, FASTING 91 MG/DL (60-100); LDL CHOLESTEROL 128.6 MG/DL (<100); POTASSIUM SERUM 4.1 MMOL/L (3.5-5.1); SODIUM LEVEL 139 MMOL/L (136-145); TOTAL PROTEIN 7.2 G/DL (5.7-8.2); TRIGLYCERIDES LEVEL 157 MG/DL (<150)
[2023-07-11 18:34] LABS: CREATININE, URINE 148.2 MG/DL; MALB URINE SIEMENS < 3.0 MG/L
== END ==
LOC: M SFHCADAM 12:01
PROVIDERS: ATTEND Physician Assistant
DX: E11.9 Type 2 diabetes mellitus without complications (principal); E66.01 Morbid (severe) obesity due to excess calories; I10 Essential (primary) hypertension

== ENCOUNTER → 2024-01-12 | Outpatient (REF) | payer OTHER ==
[2024-01-12 17:47] LABS: HEMOGLOBIN A1c 4.6 % (4.0-6.0)
[2024-01-12 18:05] LABS: BLOOD UREA NITROGEN 10 MG/DL (9-23); CALCIUM LEVEL 10.2 MG/DL (8.5-10.1); CARBON DIOXIDE LEVEL 27 MMOL/L (20-31); CHLORIDE LEVEL 108 MMOL/L (98-107); CREATININE FOR GFR 0.74 MG/DL (0.55-1.30); GLOMERULAR FILTRATION RATE > 60.0 (>58); GLUCOSE, FASTING 84 MG/DL (60-100); POTASSIUM SERUM 4.3 MMOL/L (3.5-5.1); SODIUM LEVEL 140 MMOL/L (136-145)
== END ==
LOC: M SFHCADAM 11:44
PROVIDERS: ATTEND Physician Assistant
DX: E11.9 Type 2 diabetes mellitus without complications (principal); E66.01 Morbid (severe) obesity due to excess calories

== ENCOUNTER → 2024-02-05 | Outpatient (REF) | payer OTHER | LOC: M LAB REF 13:35 | PROVIDERS: ATTEND Physician Assistant | DX: C44.611 Basal cell carcinoma of skin of unspecified upper limb, including shoulder (principal); D23.62 Other benign neoplasm of skin of left upper limb, including shoulder ==

== ENCOUNTER → 2024-03-11 | Outpatient (REF) | payer OTHER | LOC: M SFHCDERM 17:07 | PROVIDERS: ATTEND Physician Assistant | DX: C44.612 Basal cell carcinoma of skin of right upper limb, including shoulder (principal) ==

== ENCOUNTER → 2024-04-23 | Outpatient (REF) | payer OTHER | LOC: M SFHCWAGY 13:09 | PROVIDERS: ATTEND Advanced Practice Midwife | DX: Z12.4 Encounter for screening for malignant neoplasm of cervix (principal) ==

== ENCOUNTER → 2024-06-11 | Outpatient (REF) | payer OTHER ==
[2024-06-11 13:38] LABS: BASO % 0.6 % (0.0-1.0); EOS # 0.2 10^3/uL (0.0-0.5); EOS % 2.1 % (0.0-3.0); HEMATOCRIT 39.3 % (36.0-47.0); HEMOGLOBIN 13.3 g/dl (12.0-15.5); LYMPH # 1.3 10^3/uL (1.5-5.0); LYMPH % 18.9 % (24.0-44.0); MEAN CORPUSCULAR HGB CONC 33.8 g/dl (32.0-36.5); MEAN CORPUSCULAR VOLUME 88.7 fl (80.0-96.0); MONO # 0.5 10^3/uL (0.0-0.8); MONO % 6.8 % (2.0-8.0); PLATELET COUNT, AUTOMATED 175 10^3/uL (150-450); RED BLOOD COUNT 4.43 10^6/uL (4.00-5.40)
[2024-06-11 13:43] LABS: ALBUMIN 3.6 G/DL (3.2-5.2); ALKALINE PHOSPHATASE 78 U/L (35-104); ALT/SGPT 18 U/L (7.0-40); AST/SGOT 16 U/L (<34); BILIRUBIN,TOTAL 1.5 MG/DL (0.3-1.2); BLOOD UREA NITROGEN 12 MG/DL (9-23); CALCIUM LEVEL 9.6 MG/DL (8.5-10.1); CARBON DIOXIDE LEVEL 27 MMOL/L (20-31); CHLORIDE LEVEL 106 MMOL/L (98-107); CHOLESTEROL LEVEL 201 MG/DL (<200); CHOLESTEROL RISK RATIO 5.08 (<5); CREATININE FOR GFR 0.71 MG/DL (0.55-1.30); GLOMERULAR FILTRATION RATE > 60.0 (>58); GLUCOSE, FASTING 92 MG/DL (60-100); HDL CHOLESTEROL 39.5 MG/DL (>40); LDL CHOLESTEROL 132.3 MG/DL (<100); NON-HDL-C 161.5 MG/DL; POTASSIUM SERUM 4.2 MMOL/L (3.5-5.1); SODIUM LEVEL 142 MMOL/L (136-145); TOTAL PROTEIN 7.1 G/DL (5.7-8.2); TRIGLYCERIDES LEVEL 146 MG/DL (<150)
[2024-06-11 13:44] LABS: THYROID STIMULATING HORMONE 1.501 uIU/ML (0.55-4.78)
[2024-06-11 14:21] LABS: HEMOGLOBIN A1c 4.9 % (4.0-6.0)
== END ==
LOC: M SFHCADAM 07:26
PROVIDERS: ATTEND Physician Assistant
DX: E11.9 Type 2 diabetes mellitus without complications (principal); E66.01 Morbid (severe) obesity due to excess calories; Z68.37 Body mass index [BMI] 37.0-37.9, adult; E66.812 Obesity, class 2; F41.1 Generalized anxiety disorder; I10 Essential (primary) hypertension